=== PATIENT | female | born 1955 | race Caucasian/White ===

== ENCOUNTER 2024-07-06 09:16 | Outpatient (REF) | payer MEDICARE, OTHER, SELFPAY ==
--- OUTSIDE RECORDS SUMMARY | 2024-07-06 10:20 | XMS_ITS | Clinical Summary ---
Author Organization [facility] Address [address] [place] [phone] Phone Care Team Providers Care Oracle Database Administrator Name Role Phone Shana Sidhu MD Primary Care Provider [phone] Allergies Active Allergy Reactions Criticality Noted Date Comments Egg 12/27/2020 GI issues Other 02/11/2022 Seasonal Medications cholecalciferol (VITAMIN D-3) 50 mcg (2,000 unit) tablet Take 1 Tablet by mouth daily. 2 Active multivitamin (MULTI-DAY ORAL) Take by mouth. Active ciclopirox (PENLAC) 8 % solution APPLY ONCE DAILY TO AFFECTED TOENAILS. REMOVE WITH ACETONE OR RUBBING ALCOHOL EVERY 7 DAYS. 4 Active LORazepam (ATIVAN) 0.5 mg tablet Take 1 tablet (0.5 mg total) by mouth every 6 (six) hours if needed. Max Daily Amount: 2 mg Active atorvastatin (LIPITOR) 10 mg tablet Take 1 tablet (10 mg total) by mouth 1 (one) time each day. 90 tablet 1 5 Active amLODIPine (NORVASC) 5 mg tablet Take 1 tablet (5 mg total) by mouth 1 (one) time each day. 90 tablet 1 5 Active alendronate (FOSAMAX) 70 mg tablet TAKE 1 TABLET BY MOUTH ONE TIME PER WEEK 12 tablet 5 Active benzonatate (TESSALON) 100 mg capsule Take 1 capsule (100 mg total) by mouth 3 (three) times a day if needed for cough for up to 7 days. Do not crush or chew. 21 each 5 06/13/19 25 Active Problems Problem Noted Date Diagnosed Date History of total abdominal hysterectomy 03/16/20 24 H/O bilateral salpingo-oophorectomy 03/16/2024 History of splenectomy 03/16/2024 Hyperlipidemia 03/16/2024 Assessment & Plan (03/16/2024 9:34 AM EST): Follow low-cholesterol diet. Continue atorvastatin. Malignant neoplasm of both o varies (CMS/HCC V24, CMS/HCC V28) 12/03/2023 Assessment & Plan (03/16/2024 9:34 AM EST): She is being monitored very closely by oncology and gynecology is not getting good treatment through them. Primary hypertension 09/15/2023 Assessment & Plan (03/16/2024 9:34 AM EST): Blood pressure is acceptable. Continue amlodipine. Diverticulosis 01/29/2021 Overview (02/10/2024): Sigmoid colon Allergic rhinitis 12/19/2020 DDD (degenerative disc disease), cervical 2020 Overview (02/10/2024): Multilevel. Lordotic loss w/ slight degrees of anterolithesis at C4-5 and C7-T1, cervical spine xray 06/06/2019. DJD (degenerative joint disease) 12/19/2020 Overview (02/10/2024): Multilevel, x-ray cervical spine 06/06/2019. R neck pain daily basis. Lipoma of lower back 12/19/2020 Overview (02/10/2024): Per provider problem list. Mitral valve prolapse 12/19/2020 Overview (02/10/2024): Per provider problem list. Osteopenia 12/19/2020 Assessment & Plan (03/16/2024 9:34 AM EST): Continue alendronate. No side effects of the medication. Pectus excavatum 12/19/2020 Overview (02/10/2024): Mild, 06/06/2019 chest x-ray. Thoracic kyphosis 12/19/2020 Overview (02/10/2024): Thoracic kyphoscoliosis - Mild, 06/06/2019 chest x-ray. Varicose veins of legs 12/19/2020 Venous insufficiency of both lower extremities 0 12/19/2020 Overview (02/10/2024): S/P EVLT and phlebectomy. Encounters Date Type Department Care Team Description 06/09/2024 Telephone Internal Medicine - [address] [phone] Shana Sidhu MD Forms/questionnaires ([facility] PROGRAM MEDICAL CLEARANCE) 06/05/2024 9:00 AM EDT Office Visit Walk-In Clinic - [address] [phone] Chester Lazcano, MOTORCYCLE ENGINE ASSEMBLER Symptoms of upper respiratory infection (URI) (Primary Dx); COVID from Last 3 Months Immunizations Name Administration Dates Next Due HiB PRP-T conjugate (Acthib, Hiberix) 6wks and o lder 11/14/2023 Influenza Quadravalent, MDCK , 0.5ml, preservative free (Flucelvax) 6mo and older 12/08/2022 Influenza trivalent, 0.5mL (Fluad) 65yo and olde r 01/07/2022 Influenza trivalent, 0.5mL ( Fluzone High-dose) 65yo and older 12/10/2023,01/07/2022 Meningococcal B, Recombinant (Bexsero) 16yo to less than 24yo 01/12/2024,11/13/2023 Meningococcal Conjugate (Men veo) MenACWY 11yo to less than 19 yo 01/12/2024,11/14/2023 Moderna SARS-CoV-2 COVID-19, mRNA, LNP-S, preservative free 01/24/2021 Pneumococcal conjugate 13 va lent (Prevnar 13, PCV13) 2mo and older 12/27/2020 Pneumococcal conjugate 20 va lent (Prevnar 20, PCV 20) 2mo and older 11/13/2023 Pneumococcal polysaccharide 23 valent (Pneumovax 23) 2yo and older 07/27/2022 Pneumococcal, Unspecified 03/04/2015 Tdap Tetanus diptheria acell ular pertussis (Boostrix; Adacel) 7yo and older 12/08/2022,04/20/2019 Zoster recombinant (Shingrix) 19yo and older ,02/21/2019 Surgical History Surgery Date Site/Laterality Comments MASTECTOMY 01/14/2010 Right PROCEDURE: HISTORICAL MASTECTOMY; COMMENT: w/ immed reconstruction of R breast by Dr. Sinha, L breast augmentation w/ silicone gel implants bilaterally. OTHER SURGICAL HISTORY 06/23/2018 Left PROCEDURE: [place] ENDOVEN ABLTJ INCMPTNT VEIN XTR LASER 2ND+ VEINS; COMMENT: Dr. Lena Hope CATARACT EXTRACTION PROCEDURE: HISTORICAL CATARACT REMOVAL SECTION PROCEDURE: HISTORICAL DELIVERY; COMMENT: x 3 COLONOSCOPY 07/31/2020 PROCEDURE: HISTORICAL COLONOSCOPY; COMMENT: Diverticulosis in sigmoid colon, internal hemorrhoids without prolapse, otherwise normal, no specimens collected. 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 Pectus excavatum 12/19/2020 DX:Pectus excav atum; COMMENT: Mild, 06/06/2019 chest x-ray. Thoracic kyphosis 12/19/2020 DX:Thoracic ky phosis; COMMENT: Mild, 06/06/2019 chest x-ray. DDD (degenerative disc disea se), cervical 12/19/2020 DX:DDD (degenerative disc di sease), cervical; COMMENT: Multilevel. Lordotic loss w/ slight degrees of anterolithesis at C4-5 and C7-T1, cervical spine xray 06/06/2019. R neck pain daily basis. DJD (degenerative joint disease) 12/19/2020 DX:DJD (degenerative joint disease); COMMENT: Multilevel, x-ray cervical spine 06/06/2019 Allergic rhinitis 12/19/2020 DX:Allergic rh initis Venous insufficiency of both lower extremities 12/19/2020 DX:Venous insufficiency of b oth lower extremities; COMMENT: S/P EVLT and phlebectomy. Varicose veins of legs 12/19/2020 DX:Varico se veins of legs History of cataract 12/19/2020 DX:History o f cataract; COMMENT: s/p surgery, bilaterally. Mitral valve prolapse 12/19/2020 DX:Mitral valve prolapse; COMMENT: Per provider problem list. Lipoma of lower back 12/19/2020 DX:Lipoma o f lower back; COMMENT: Per provider problem list. 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) S/P Todd-Bso 12/03/2023 DX:S/P TODD-BSO H/O bilateral salpingo-oophorectomy 03/16/2024 History of splenectomy 03/16/2024 Family History Medical History Relation Name Comments Breast cancer Aunt 1 maternal Breast cancer Aunt 2 maternal Hypertension Father DEmentia, carot id stenosis, Colon Polyps Osteoporosis Mother early onset dem entia, Hypertension, Dementia Kidney cancer Other 1 paternal cousin Bladder Cancer Other 2 paternal cousin Relation Name Status Comments Aunt 1 maternal Aunt 2 maternal Father Mother Other 1 paternal cousin Other 2 paternal cousin Social History Tobacco Use Types Packs/Day Years Used Date Smoking Tobacco: Never Smokeless Tobacco: Never Tobacco Cessation:Counseling Given: Not Answered Alcohol Use Standard Drinks/Week Comments Yes 0 (1 standard drink = 0.6 oz pur e alcohol) Comments No Sex and Gender Information Value Date Recorded Sex Assigned at Not on file Legal Sex Female 9:13 PM EST Gender Identity Not on file Sexual Orientation Not on file Obstetrics History Last Filed Vital Signs Vital Sign Reading Time Taken Comments Blood Pressure 108/72 06/05/2024 9:00 AM EDT Pulse 100 06/05/2024 9:00 AM EDT Temperature 36.7 ??C (98 ??F) 06/05/2024 9:00 AM EDT Respiratory Rate - - Oxygen Saturation 97% 06/05/2024 9:00 AM EDT Inhaled Oxygen Concentration - - Weight 52.3 kg (115 lb 6.4 oz) 03/16/2024 9:07 A M EST Height 158.8 cm (5' 2.5 ) 03/16/2024 9:07 AM EST Body Mass Index 20.77 03/16/2024 9:07 AM EST Plan of Treatment Upcoming Encounters Date Type Department Care Team (Late st Contact Info) Description 07/28/2024 9:00 AM EDT Office Visit Internal Medicine - [facility] [address] [place], [place] [phone] Kassi Wilson, LINDA [address] [place] [address] Health Maintenance Due Date Last Done Comments Breast Cancer Screening 1955 Social Influencers of Health Screening 02/28/2022 Cervical Cancer Screening: Pap Smear 03/13/2023 03/13/2022 COVID-19 Vaccine ( season) 2023 08/04/2021, 01/24/2021, 06/28/2020, Additional history exists Meningococcal B Vaccine (3 of 5 - Increased Risk Bexsero 3-dose series) 05/15/2024 01/12/2024, 11/13/2023 Depression Screening 08/17/2024 08/18/2023 Falls Risk Assessment 08/17/2024 08/18/2023 Medicare Annual Wellness Visit 08/17/2024 08/18/2023 Osteoporosis Screening (Bone Density Screening) 09/20/2024 09/21/2023, 09/21/2023, 08/28/2021 Hypertension/CHF/CAD Annual BMP Blood Test 05/03/2025 05/03/2024, 04/05/2024, 03/08/2024, Additional history exists Colorectal Cancer Screening: Colonoscopy 07/31/2025 07/31/2020 Cholesterol Screening (Lipid Panel) 09/09/2028 09/10/2023, 09/10/2023 Meningococcal ACWY Vaccine (3 - Risk 2-dose series) 01/11/2029 01/12/2024, 11/14/2023 RSV Immunization Adult Patients (1 - 1-dose 75+ series) 2029 DTaP,Tdap,and Td Vaccines (3 - Td or Tdap) 12/08/2032 12/08/2022, 04/20/2019 Zoster Vaccines Completed 05/19/2019, 02/21/2019 Hepatitis C Screening Completed 04/30/2021 Pneumococcal Vaccine: 50+ Years Completed 11/13/2023, 07/27/2022, 12/27/2020, Additional history exists HIB Vaccines Completed 11/14/2023 Influenza Vaccine Completed 12/10/2023, , 01/07/2022, Additional history exists HPV Vaccines Aged Out No longer eligi ble based on patient's age to complete this topic Hepatitis A Vaccines Aged Out No long er eligible based on patient's age to complete this topic Hepatitis B Vaccines Aged Out No long er eligible based on patient's age to complete this topic IPV Vaccines Aged Out No longer eligi ble based on patient's age to complete this topic MMR Vaccines Aged Out No longer eligi ble based on patient's age to complete this topic RSV Immunization Patients Under 20 months Aged Out No longer eligible based on patient's age to complete this topic Varicella Vaccines Aged Out No longer eligible based on patient's age to complete this topic Procedures Procedure Name Priority Date/Time Associated Diagnosis Comments POC RAPID [id number], MOLECULAR Routine 06/05/2024 9:11 AM EDT Symptoms of upper respiratory infection (URI) ANNUAL BMP BLOOD TEST Routine 12/21/2023 [facility] DEXA AXIAL SKELETON Routine 09/21/2023 8:58 AM EDT Encounter for screening for osteoporosis LIPID PANEL Routine 09/10/2023 DEPRESSION SCREENING Routine 08/18/2023 FALLS RISK ASSESSMENT Routine 08/18/2023 PAP SMEAR Routine 03/13/2022 HEPATITIS C SCREENING Routine 04/30/2021 COLONOSCOPY Routine 07/31/2020 from Last 3 Months or Most Recently Relevant to Health Maintenance Results * (ABNORMAL) Poc Rapid [id number], MOLECULAR (06/05/2024 9:11 AM EDT) COVID-19/SARS- COV-2 Rapid POC Positive(A ) Negative Swab Nasopharyngeal structure / Unknown 06/05/2024 9:11 AM EDT Chester Lazcano NP POINT OF CARE TEST ENTER/EDIT ORDERABLES Final Result * [facility] DEXA AXIAL SKELETON (09/21/2023 8:58 AM EDT) Anatomical Region Laterality Modality Mammography 09/21/2023 8:12 AM EDT Narrative 09/21/2023 8:58 AM EDT [facility] Diagnostic Imaging Department [address] [place] [address] Patient: ??MONSERRAT BROOKS ?/Age/Sex: 1955 - 67 - F Unit#: ??[id number] ? Location/Status: ??SPDIMAM/REG CLI ? Mnemonic/Ordering Site: ??MAMDEXAAX/SPMAM Ordering Physician: ??SHANA SIDHU MD [facility] Dexa Axial Skeleton - 09/21/2349 Report Status:Signed History: Low estrogen state due to menopause. Parent hip fracture. Takes alendronate. Comparison: No comparison imaging at this institution. Findings: Bone densitometry is performed utilizing dual energy x-ray absorptiometry (DXA) in the [employer] unit. The lumbar spine and proximal femora are evaluated in the AP projection. The FRAX questionaire was completed. The results indicate low bone mass (osteopenia), with a left femoral neck T- score of -1.9. The Z score is -0.1, indicating bone mineral density within the range of normal for age. ??The detailed DEXA report will be mailed to the referring physician's office. DualFemur FRAX: 10-year Probability of Fracture: Major Osteoporotic 16.5 percent ??Hip 2.7 percent. IMPRESSION: Osteopenia. [id number] Dictating Physician: ??FELICITA LEON MD Electronically Signed by: ??FELICITA LEON MD Dic Date/Time: ??09/21/23 0857 Sign date/Time: ??09/21/23 0858 Procedure Note Felicita Leon MD - 01/12/2024 [facility] Diagnostic Imaging Department [address] [place], [place] [address] Patient: MONSERRAT BROOKS /Age/Sex: 1955 - 67 - F Unit#: [id number] [facility] Ordering Physician: SHANA SIDHU MD [facility] Dexa Axial Skeleton - 09/21/23 - 0849 Report Status:Signed History: Low estrogen state due to menopause. Parent hip fracture. Takes alendronate. Comparison: No comparison imaging at this institution. Findings: Bone densitometry is performed utilizing dual energy x-ray absorptiometry(DXA) in the [employer] unit. The lumbar spine and proximal femora areevaluated in the AP projection. The FRAX questionaire was completed. The results indicate low bone mass (osteopenia), with a left femoral neckT- score of -1.9. The Z score is -0.1, indicating bone mineral density withinthe range of normal for age. The detailed DEXA report will be mailed to the referring physician's office. DualFemur FRAX: 10-year Probability of Fracture: Major Osteoporotic 16.5 percent Hip 2.7 percent. IMPRESSION: Osteopenia. [id number] Dictating Physician: FELICITA LEON MD Electronically Signed by: FELICITA LEON MD Dic Date/Time: 09/21/2357 Sign date/Time: 09/21/23 0858 Result [facility] Shana Sidhu MD IMG BI PROCEDURES Final R esult * Lipid panel (09/10/2023) [facility] LDL/HDL Ratio 2 0 - 4 Triglycerides 82 0 - 150 mg/dL Cholesterol 181 0 - 200 mg/dL HDL 78 >=40 mg/dL LDL Cholesterol 87 0 - 100 mg/dL Blood Venous blood specimen / Unknown Historical Provider LAB BLOOD ORDERABLES Ree l Result * Falls Risk Assessment (08/18/2023) [facility] Falls Risk Assessment Abstracted Result [facility] Historical Provider HEALTH MAINTENANCE Final Result * Depression Screening (08/18/2023) [facility] Depression Screening Abstracted Result [facility] Historical Provider HEALTH MAINTENANCE Final Result * Pap Smear (03/13/2022) Pap smear Negative, Abstracted Historical Provider HEALTH MAINTENANCE Final Result * Hepatitis C Screening (04/30/2021) Hepatitis C Screening Abstracted Historical Provider HEALTH MAINTENANCE Final Result * Colonoscopy (07/31/2020) Colonoscopy No interpretation , Abstracted Comment:Diverticulosis in si gmoid colon, internal hemorrhoids, otherwise normal- no speciments taken. Repeat 5 yrs- family hx. Anatomical Region Laterality Modality Other Historical Provider HEALTH MAINTENANCE Final Result from Last 3 Months or Most Recently Relevant to Health Maintenance Insurance MEDICARE [facility] Care Teams Oracle Database Administrator Relationship Specialty Start Date End Date Shana Sidhu MD [address] [place] [id number] PCP - General Internal Medicine 11/22/20
[2024-07-06 11:33] LABS: Thyroid Stimulating Hormone 0.53 uIU/mL (0.32-4.0)
[2024-07-06 11:36] LABS: Vitamin B12 340 pg/mL (200-900)
== END 2024-07-06 09:17 | disposition home or self-care (01) ==
LOC: HO.LAB 09:16
PROVIDERS: PCP Internal Medicine; Visit Provider Psychiatry & Neurology Neurology
DX: G31.84 Mild cognitive impairment of uncertain or unknown etiology (principal)
CPT/HCPCS: 82233; 82234; 82607; 84393; 84443

== ENCOUNTER 2024-07-25 10:32 | Outpatient (REF) | payer MEDICARE, OTHER, SELFPAY ==
--- NOTE | ~2024-07-25 | XR_ITS ---
EXAMINATION: XR PARANASAL SINUSES 3 VIEWS HISTORY: sinusitis COMPARISON: There are no prior studies for comparison. FINDINGS: Five views of the paranasal sinuses are submitted. The bilateral frontal, maxillary, ethmoid, and sphenoid sinuses are well-aerated and clear. XR/XR sinus min 3V IMPRESSION: Unremarkable examination of the paranasal sinuses. Electronically signed by: Garcia Castrejon MD 07/26/2024 03:13 PM EDT RP
--- OUTSIDE RECORDS SUMMARY | 2024-07-25 12:11 | XMS_ITS | Clinical Summary ---
Author Organization [facility] Address [address] [place] [phone] Phone Care Team Providers Care Shaper Machine Hand Name Role Phone Shana Sidhu MD Primary Care Provider [phone] Allergies Active Allergy Reactions Criticality Noted Date Comments Egg 12/27/2020 GI issues Other 02/11/2022 Seasonal Medications cholecalciferol (VITAMIN D-3) 50 mcg (2,000 unit) tablet Take 1 Tablet by mouth daily. 09/05/2021 Active multivitamin (MULTI-DAY ORAL) Take by mouth. Active ciclopirox (PENLAC) 8 % solution APPLY ONCE DAILY TO AFFECTED TOENAILS. REMOVE WITH ACETONE OR RUBBING ALCOHOL EVERY 7 DAYS. 01/10/2024 Active LORazepam (ATIVAN) 0.5 mg tablet Take 1 tablet (0.5 mg total) by mouth every 6 (six) hours if needed. Max Daily Amount: 2 mg Active atorvastatin (LIPITOR) 10 mg tablet Take 1 tablet (10 mg total) by mouth 1 (one) time each day. 90 tablet 1 05/09/2024 Active amLODIPine (NORVASC) 5 mg tablet Take 1 tablet (5 mg total) by mouth 1 (one) time each day. 90 tablet 1 05/09/2024 Active alendronate (FOSAMAX) 70 mg tablet TAKE 1 TABLET BY MOUTH ONE TIME PER WEEK 12 tablet 06/01/2024 Active Active Problems Problem Noted Date Diagnosed Date [...] Team Description 06/09/2024 Telephone Internal Medicine - [address] [phone] Shana Sidhu MD Forms/questionnaires ([facility] PROGRAM MEDICAL CLEARANCE) 06/05/2024 9:00 AM EDT Office Visit Walk-In Clinic - [address] [phone] Chester Lazcano, INTERNAL MEDICINE DOCTOR Symptoms of upper respiratory infection (URI) (Primary [...] bilaterally. OTHER SURGICAL HISTORY 06/23/2018 Left PROCEDURE: [place] ENDOVEN ABLTJ INCMPTNT VEIN XTR LASER 2ND+ [...] 12/03/2023 DX:Malignant neoplasm of ghazal th ovaries ([facility]) S/P Todd-Bso 12/03/2023 DX:S/P TODD-BSO H/O bilateral [...] AM EDT Office Visit Internal Medicine - [address] [phone] Kassi Wilson, LINDA [address] [place] [phone] 08/09/2024 9:00 AM EDT Office Visit Internal Medicine - [address] [phone] Kassi Wilson, LINDA [address] [place] [phone] Health Maintenance Due Date Last Done Comments [...] Priority Date/Time Associated Diagnosis Comments POC RAPID [id number], MOLECULAR Routine 06/05/2024 9:11 AM EDT Symptoms of upper respiratory infection (URI) ANNUAL BMP BLOOD TEST Routine 12/21/2023 [facility] DEXA AXIAL SKELETON Routine 09/21/2023 8:58 AM EDT Encounter for screening for osteoporosis LIPID PANEL Routine 09/10/2023 DEPRESSION SCREENING Routine 08/18/2023 FALLS RISK ASSESSMENT Routine 08/18/2023 PAP SMEAR Routine 03/13/2022 HEPATITIS C SCREENING Routine 04/30/2021 COLONOSCOPY Routine 07/31/2020 from Last 3 Months or Most Recently Relevant to Health Maintenance Results * (ABNORMAL) Poc Rapid [id number], MOLECULAR (06/05/2024 9:11 AM EDT) [facility] COVID-19/SARS- COV-2 Rapid POC Positive(A ) Negative Swab Nasopharyngeal structure / Unknown 06/05/2024 9:11 AM EDT Chester Lazcano NP POINT OF CARE TEST ENTER/EDIT ORDERABLES Final Result * [facility] DEXA AXIAL SKELETON (09/21/2023 8:58 AM EDT) Anatomical Region Laterality Modality Mammography 09/21/2023 8:12 AM EDT Narrative 09/21/2023 8:58 AM EDT [facility] Diagnostic Imaging Department [address] [place], [place] [id number] Patient: ??MONSERRAT BROOKS ?/Age/Sex: 1955 - 67 - F Unit#: ??[id number] ? Location/Status: ??SPDIMAM/REG CLI ? Mnemonic/Ordering Site: ??MAMDEXAAX/SPMAM Ordering Physician: ??SHANA SIDHU MD [facility] Dexa Axial Skeleton - 09/21/23848 Report Status:Signed History: Low estrogen state due to menopause. Parent hip fracture. Takes alendronate. Comparison: No comparison imaging at this institution. Findings: Bone densitometry is performed utilizing dual energy x-ray absorptiometry (DXA) in the [employer] unit. The lumbar spine and proximal femora [...] 16.5 percent ??Hip 2.7 percent. IMPRESSION: Osteopenia. [id number] Dictating Physician: ??FELICITA LEON MD Electronically Signed by: ??FELICITA LEON MD Dic Date/Time: ??09/21/23 0857 Sign date/Time: ??09/21/23 0858 Procedure Note Felicita Leon MD - 01/12/2024 [facility] Diagnostic Imaging Department [address] [place] [address] Patient: MONSERRAT BROOKS /Age/Sex: 1955 - 67 - F Unit#: [id number] Location/Status: SPDIMAM/REG CLI Mnemonic/Ordering Site: MAMDEXAAX/SPMAM Ordering Physician: SHANA SIDHU MD [facility] Dexa Axial Skeleton - 09/21/23 - 0849 Report Status:Signed History: Low estrogen state due to menopause. Parent hip fracture. Takes alendronate. Comparison: No comparison imaging at this institution. Findings: Bone densitometry is performed utilizing dual energy x-ray absorptiometry(DXA) in the [employer] unit. The lumbar spine and proximal femora [...] 16.5 percent Hip 2.7 percent. IMPRESSION: Osteopenia. [id number] Dictating Physician: FELICITA LEON MD Electronically Signed by: FELICITA LEON MD Dic Date/Time: 09/21/23856 Sign date/Time: 09/21/2358 Shana Sidhu MD IMG BI PROCEDURES Final R esult * Lipid panel (09/10/2023) [facility] LDL/HDL Ratio 2 0 - 4 Triglycerides 82 0 - 150 mg/dL Cholesterol 181 0 - 200 mg/dL HDL 78 >=40 mg/dL LDL Cholesterol 87 0 - 100 mg/dL Blood Venous blood specimen / Unknown Historical Provider LAB BLOOD ORDERABLES Ree l Result * Falls Risk Assessment (08/18/2023) [facility] Falls Risk Assessment Abstracted Historical Provider HEALTH MAINTENANCE Final Result * Depression Screening (08/18/2023) [facility] Depression Screening Abstracted Historical Provider HEALTH MAINTENANCE Final Result * Pap Smear (03/13/2022) [facility] Pap smear Negative, Abstracted [facility] Provider HEALTH MAINTENANCE Final Result * Hepatitis C Screening (04/30/2021) [facility] Hepatitis C Screening Abstracted [facility] Provider HEALTH MAINTENANCE Final Result * Colonoscopy (07/31/2020) [facility] Colonoscopy No interpretation , Abstracted Comment:Diverticulosis in si gmoid colon, internal hemorrhoids, otherwise normal- no speciments taken. Repeat 5 yrs- family hx. Anatomical Region Laterality Modality Other [facility] Provider HEALTH MAINTENANCE Final Result from Last 3 Months or Most Recently Relevant to Health Maintenance Insurance MEDICARE [facility] [address] [place] [address] Care Teams Shaper Machine Hand Relationship Specialty Start Date End Date Shana Sidhu MD [address] [place] [phone] PCP - General Internal Medicine 11/22/20
== END 2024-07-25 10:33 | disposition home or self-care (01) ==
LOC: HO.LAB 10:32
PROVIDERS: PCP Internal Medicine; Visit Provider Otolaryngology
DX: J32.9 Chronic sinusitis, unspecified (principal)
CPT/HCPCS: 70220

== ENCOUNTER → 2024-07-25 11:00 | Outpatient (BNV) | payer MEDICARE, OTHER, SELFPAY | PROVIDERS: PCP Internal Medicine; Visit Provider Radiology Diagnostic Radiology | DX: J01.90 Acute sinusitis, unspecified (principal) | CPT/HCPCS: 70220 ==

== ENCOUNTER 2024-12-19 15:47 | Outpatient (AMB) | payer MEDICARE, OTHER, SELFPAY ==
--- OUTSIDE RECORDS SUMMARY | 2024-12-15 11:00 | XMS_ITS | Encounter Summary ---
Author Organization [facility] Address [address] [place] [address] Care Team Providers Care Salon Assistant Name Role Phone Stephania Corona MD Primary Care Provider [phone] Reason for Visit * Reason Comments Cerumen Impaction 1 week , Both side Encounter Details Date Type Department Care Team (Late st Contact Info) Description 12/15/2024 11:00 AM EDT Office Visit Walk-In Clinic - [facility] [address] [place], [place] [phone] Arie Ellis PA [address] [place], [place] Impacted cerumen of both ears (Primary Dx) Social History Tobacco Use Types Packs/Day Years Used Date Smoking Tobacco: Never Smokeless Tobacco: Never Alcohol Use Standard Drinks/Week Comments Yes 0 (1 standard drink = 0.6 oz pur e alcohol) occasional Housing Instability Answer Date Recorde d Are you worried that in the next 2 months you may not have stable housing? No 07/25/2024 Food Access & Nutrition Answer Date Rec orded Do you have access to a vari ety of food including fruits and vegetables? Yes 10/10/2024 Access to Healthcare Answer Date Record ed Within the last 3 months, ho w many times did you visit the emergency department for your medical care? 0 07/25/2024 Health Literacy Answer Date Recorded How often do you need to hav e someone help you when you read instructions, pamphlets, or other written material from your doctor or pharmacy? Rarely 07/25/2024 Caregiver: How often do you need to have someone help you when you read instructions, pamphlets, or other written material from your doctor or pharmacy? Not on file 07/25/2024 Financial Risk Answer Date Recorded How hard is it for you to pa y for the very basics like food, housing, medical care, and air conditioning / heating? Not very hard 10/10/2024 Transportation Answer Date Recorded Has the lack of transportati on kept you from meetings, work, or from getting things needed for daily living? No Has the lack of transportati on kept you from medical appointments or from getting medications? No 10/10/2024 Social Isolation Answer Date Recorded How often do you feel lonely or isolated from th ose around you? Never 10/10/2024 Food Risk Answer Date Recorded Within the past 12 months we worried whether our food would run out before we got money to buy more. Never true 10/10/2024 Within the past 12 months th e food we bought just didn't last and we didn't have money to get more. Never true 10/10/2024 Dependent Care Answer Date Recorded Do you need help finding or paying for care for your loved ones. For example, early childhood education coordinator or elderly care for an older adult? No 10/10/2024 Education Answer Date Recorded Do you think completing more education or training, like finishing a GED, going to college, or learning a trade, would be helpful for you? No 10/10/2024 Employment and Income Answer Date Recor ded During the last four weeks, have you been actively looking for work? No 07/25/2024 Living Situation Answer Date Recorded What is your living situation? 0 07/25/2024 Comments No Sex and Gender Information Value Date Recorded Sex Assigned at Not on file Legal Sex Female 9:13 PM EST Gender Identity Not on file Sexual Orientation Not on file documented as of this encounter Last Filed Vital Signs Vital Sign Reading Time Taken Comments Blood Pressure 138/82 12/15/2024 10:52 AM EDT Pulse 76 12/15/2024 10:52 AM EDT Temperature 36.2 C (97.1 F) 12/15/2024 10:52 AM EDT Respiratory Rate - - Oxygen Saturation 98% 12/15/2024 10:52 AM EDT Inhaled Oxygen Concentration - - Weight - - Height - - Body Mass Index - - documented in this encounter Progress Notes * JITENDRA Villalobos - 12/15/2024 11:00 AM EDT CHIEF COMPLAINT: Chief Complaint Patient presents with Cerumen Impaction 1 week , Both side HPI: Gabi Brooks is a 69 y.o. old female presenting with about a week of blockage in both ears. States that it feels reminiscent of earwax problems she has had in the past. Denies any head cold symptoms,fever, or ear pain related to onset. ROS: Remainder of the 12 point review of symptoms unremarkable except for those idenitified in the HPI. PAST MEDICAL HISTORY: Patient Active Problem List Diagnosis Date Noted Hyperlipidemia 03/16/2024 Malignant neoplasm of both ovaries (CMS/[facility] V24, CMS/[facility] V28) 12/03/2023 Primary hypertension 09/15/2023 Diverticulosis 01/29/2021 Allergic rhinitis 12/19/2020 DDD (degenerative disc disease), cervical 12/19/2020 DJD (degenerative joint disease) 12/19/2020 Lipoma of lower back 12/19/2020 Mitral valve prolapse 12/19/2020 Osteopenia 12/19/2020 Pectus excavatum 12/19/2020 Thoracic kyphosis 12/19/2020 Varicose veins of legs 12/19/2020 Venous insufficiency of both lower extremities 12/19/2020 Past Surgical History: Procedure Laterality Date CATARACT EXTRACTION PROCEDURE: HISTORICAL CATARACT REMOVAL SECTION PROCEDURE: HISTORICAL DELIVERY; COMMENT: x 3 COLONOSCOPY 07/31/2020 PROCEDURE: HISTORICAL COLONOSCOPY; COMMENT: Diverticulosis in sigmoid colon, internal hemorrhoids without prolapse, otherwise normal, no specimens collected. Repeat 5 yrs MASTECTOMY Right 01/14/2010 PROCEDURE: HISTORICAL MASTECTOMY; COMMENT: w/ immed reconstruction of R breast by Dr. Sinha, L breast augmentation w/ silicone gel implants bilaterally. OTHER SURGICAL HISTORY Left 06/23/2018 PROCEDURE: NM ENDOVEN ABLTJ INCMPTNT VEIN XTR LASER 2ND+ VEINS; COMMENT: Dr. Lena Hope SPLENECTOMY, TOTAL N/A SOCIAL HISTORY: Social History Tobacco Use Smoking status: Never Smokeless tobacco: Never Substance Use Topics Alcohol use: Yes Comment: occasional FAMILY HISTORY: Family History Problem Relation Name Age of Onset Osteoporosis Mother early onset dementia, Hypertension, Dementia Hypertension Father DEmentia, carotid stenosis, Colon Polyps Other (other) Sister colon polyps No Known Problems Daughter No Known Problems Son Breast cancer Aunt maternal 60 Breast cancer Aunt maternal 60 Kidney cancer Other paternal cousin Bladder Cancer Other paternal cousin Family Status Relation Name Status Mother Father Sister Alive Daughter Alive Son Alive Aunt maternal (Not Specified) Aunt maternal (Not Specified) Other paternal cousin (Not Specified) Other paternal cousin (Not Specified) No partnership data on file MEDICATIONS DISCONTINUED/REORDERED: There are no discontinued medications. ACTIVE MEDICATIONS: No outpatient medications have been marked as taking for the 12/15/24 encounter (Office Visit) with JITENDRA Villalobos. ALLERGIES: Allergies Allergen Reactions Egg GI issues Other Seasonal PHYSICAL EXAM: Vitals: 12/15/24 1052 BP: 138/82 BP Location: Left arm Patient Position: Sitting Pulse: 76 Temp: 36.2 ??C (97.1 ??F) SpO2: 98% CONSTITUTIONAL: alert, calm, cooperative, in no acute distress HEAD: normocephalic, atraumatic EYES: extraocular movement intact (EOMI), sclera non-icteric EARS: Bilateral external auditory canals occluded with dark brown cerumen, unable to visualize tympanic membrane. No tenderness upon retraction of pinna or insertion of otoscope. No gross edema or exudative process of visible aspects of auditory canal. NECK/THYROID: neck range of motion grossly intact SKIN: warm and dry LUNGS: respirations regular rate and depth without acute distress MSK: no clubbing, cyanosis, or edema of the extremities NEUROLOGIC: alert and oriented, no tremor, cranial nerves II-XII grossly intact PSYCH: mood/affect full range, speech clear, good eye contact, cooperative with exam LABS/IMAGING: None No results found for: EGFR IMPRESSION: 1. Impacted cerumen of both ears PLAN: The patient's PMH, problem list and medications were reviewed in reference to the above diagnosis/diagnoses. Based on ROS, HPI, and PE, suggestive of cerumen impaction of both ears. Educated patient to common causes. Patient verbally consents to ear lavage in office today after discussing risks and benefits. A mixture of warm water and hydrogen peroxide is used to irrigate the bilateral ear with a combination of syringe and the elephant ear system with results. Following the procedure repeat otoscopy was performed auditory canal is now clear, hearing is restored, tympanic membrane intact without signs of infec tion or damage. Tolerated well. No complications. Advised to follow up with PCP in 7 days if symptoms do not improve. Advised to follow up with orPCP immediately for new or worsening symptoms. Educated on red flags symptoms. Advised to go to the ER or call 911 for these symptoms. Patient understands the plan. Patient verbalizes agreement with the plan. Orders Placed This Encounter Procedures Ear Cerumen Removal Scheduling Instructions: Bilateral lavage JITENDRA Villalobos on 12/15/2024 at 11:31 AM EDT Today's documentation was made using voice recognition software. This note may contain grammatical errors secondary to this software. Cosigned by Chester Brown MD at 12/19/2024 10:09 AM EDT documented in this encounter Plan of Treatment Upcoming Encounters Date Type Department Care Team (Late st Contact Info) Description 03/13/2025 10:00 AM EST Office Visit Internal Medicine - [address] [phone] Stephania Corona MD [address] [place] [address] Scheduled Orders Name Type Priority Associated Diagnoses Orde r Schedule Ear Cerumen Removal Procedures Routine Impacted cerumen of both ears Ordered: 12/15/2024 documented as of this encounter Visit Diagnoses Diagnosis Impacted cerumen of both ears- Primary Impacted cerumen documented in this encounter Additional Health Concerns Assessment Noted Time PHQ-9 Depression Total Score: 0 10/11/19 8:54 AM EDT documented as of this encounter Care Teams Salon Assistant Relationship Specialty Start Date End Date Stephania Corona MD [address] [place] [address] PCP - General Internal Medicine 10/27/24 documented as of this encounter
--- NOTE | 2024-12-19 16:06 | A.OFFVIS_ITS ---
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 For a while, she has noted that she was forgetting names, like names of actors she knew. For a year, she has developed another problem. If she was parking her car in a parking lot where other cars were already parked, she did not have much problem, but if there was no car in the lot, she had difficulty putting the car in the right spot and she was going back and forth before it was properly parked. She was most concerned about her difficulty with retrieving names. Her sleep was not good. She never had been a good sleeper. Her mood was good and positive. Bladder control was ok. Hearing was affected. No headaches. No change in pers onality. Physical Exam Neuro Other: Mental Status: Alert and oriented to person, place, and time. Normal attention. Normal spontaneous speech, fluency, and comprehension. Cranial Nerves: CN II: Visual steinberg full to confrontation, visual acuity intact. CN III, IV, : Pupils equal, round, reactive to light and accommodation. Extraocular movements are normal. CN V: Facial sensation is normal. CN VII: Facial movements symmetrical. CN VIII: Hearing intact to bedside conversation is normal. CN IX, X: Palate elevates symmetrically. CN XI: Shoulder shrug and head turn symmetrical. CN XII: Tongue midline without atrophy or fasciculations. Extrapyramidal: Full facial expressions and blinking. No rigidity. Movements are appropriate with no tremor or abnormality. Speech: Normal; no dysarthria or tremor. Assessment & Plan Assessment & Plan (1) MCI (mild cognitive impairment): Comment: MRI brain WO at [facility] in August 2024: Mild diff atrophy Labs at [facility] in 2024: B12 340, TSH 0.53 Code(s): G31.84 - Mild cognitive impairment of uncertain or unknown etiology Category: Medical Plan 69 yo woman with MCI with family h/o dementia Rec: Abeta 42/40/tau testing on serum to check for cerebral amyloid load. Orders: Orders ABeta 42/40 p-tau 217 Eval Today G31.84 - Mild cognitive impairment of uncertain or unknown etiology Coding Level of Care Code Est Pt Level 4 (55383) Diagnoses MCI (mild cognitive impairment) G31.84
--- OUTSIDE RECORDS SUMMARY | 2024-12-19 18:26 | XMS_ITS | Encounter Summary ---
Author Organization [facility] Address [address] [facility] [address] [place] [address] Phone Care Team Providers Care Scheduler Conveyor Name Role Phone Maksim Sidhu MD Primary Care Provider [phone] Addie Cao MD Unavailable [phone] Cordelia Hoyt RN Unavailable GEO [email or web address] Gris Fritz RN Unavailable [email or web address] Cate Grady RN Unavailable [email or web address] Encounter Details Date Type Department Care Team (Late st Contact Info) Description 05/11/2024 Procedure Pass [facility] Periop [address] [place] [address] Social History Tobacco Use Types Packs/Day Years Used Date Smoking Tobacco: Never Passive Smoke Exposure: Past Smokeless Tobacco: Never Passive Exposure Comments:no thing significant Alcohol Use Standard Drinks/Week Comments Not Currently 2 (1 standard drink = 0.6 oz pur e alcohol) nothing since October 2023 Child or Family Care Answer Date Record ed Do you have problems with on e of the following making it difficult for you to work, study, or receive health care? No 11/02/2023 Education Answer Date Recorded Are you interested in more education? Not on paolo e 10/26/2023 Are you concerned about learning? Not on file 10/26/2023 No 10/26/2023 No 10/26/2023 Food Answer Date Recorded Within the past 6 months we worried whether our food would run out before we got money to buy more. Never True 01/03/2024 Within the past 6 months the food we bought just didn't last and we didn't have enough money to get more. Never True Residential Stability Answer Date Recor ded What is your housing situation today? I have bill sing 01/03/2024 How many times have you move d in the past 12 months? Zero (I did not move) 01/03/2024 Paying for Meds Answer Date Recorded Do you have trouble paying for medicines? No 01/03/2024 Paying Utility Bills Answer Date Record ed Do you have trouble paying your heating or elect ricity bill? No 01/03/2024 Transportation Answer Date Recorded Has the lack of transportati on kept you from medical appointments or from getting medications? No 01/03/2024 Digital Access Answer Date Recorded No 01/03/2024 Yes 01/03/2024 Do you have reliable internet access at home? Ye s 01/03/2024 Do you have a device (e.g., phone, tablet, computer) with a working camera? Yes 01/03/2024 Intimate Partner Violence Answer Date R ecorded Are you denied basic needs s uch as food, clothing, or medical care? Deferred 05/11/2024 In the past 12 months have y ou been in a relationship with a person who hurts, threatens, or tries to control you? Deferred 05/11/2024 Are you denied basic needs s uch as food, clothing, or medical care? Deferred 05/11/2024 In the past 12 months have y ou been in a relationship with a person who hurts, threatens, or tries to control you? Deferred 05/11/2024 Comments No Sex and Gender Information Value Date Recorded Sex Assigned at Not on file Legal Sex Female 7:03 PM EST Gender Identity Not on file Sexual Orientation Not on file documented as of this encounter Plan of Treatment Upcoming Encounters Date Type Department Care Team (Late st Contact Info) Description 02/07/2025 9:50 AM EST Blood Draw Laboratory Services, [facility] [place] [facility] [place] [address] [address] Violeta Iyer MD [address] [place] [address] [email or web address] 02/07/2025 11:00 AM EST Office Visit [facility], [facility], [facility] at [address] [address] Breanne Henderson CNP [address] [facility] [place] [place] [address] [email or web address] 05/21/2025 7:30 AM EST Blood Draw Laboratory Services, [facility] at [address] [address] Cindy Negrete MD [address] [place] [address] [email or web address] 05/21/2025 8:30 AM EST Office Visit [facility], [facility], [facility] at [address] [address] Cindy Negrete MD [address] [place] [address] [email or web address] documented as of this encounter Visit Diagnoses Not on filedocumented in this encounter Care Teams Scheduler Conveyor Relationship Specialty Start Date End Date Maksim Sidhu MD [address] [place] [address] PCP - General Internal Medicine 10/25/23 Addie Cao MD [address] [place] [address] Referring Physician Gynecologic Oncology 10/25/23 Cordelia Hoyt RN [address] [place] [address] [email or web address] Primary Infusion Nurse 01/11/24 Gris Fritz RN [address] [place] [address] [email or web address] Associate Infusion Nurse 01/11/24 Cate Grady RN [address] [place] [phone] [email or web address] Associate Infusion Nurse 01/11/24 documented as of this encounter Additional Source Comments The information contained in this document represents components of the legal health record. It is not the complete legal health record.[facility]
--- OUTSIDE RECORDS SUMMARY | 2024-12-19 18:26 | XMS_ITS | Encounter Summary ---
Author Organization Loc[facility] Address [address] [employer] [facility] [address] [place] [address] Phone Care Team Providers Care Seafood Manager Name Role Phone Maksim Sidhu MD Primary Care Provider [phone] Addie Cao MD Unavailable [phone] Cordelia Hoyt RN Unavailable GEO [email or web address] Gris Fritz RN Unavailable [email or web address] Cate Grady RN Unavailable [email or web address] Encounter Details Date Type Department Care Team (Late st Contact Info) Description 05/05/2024 Procedure Pass [facility] [place] [facility] [place] [address] [facility] [address] [place] [address] Social History Tobacco Use Types Packs/Day Years [...] uch as food, clothing, or medical care? No 02/14/2024 In the past 12 months have y ou been in a relationship with a person who hurts, threatens, or tries to control you? No 02/14/2024 Are you denied basic needs s uch as food, clothing, or medical care? No 02/14/2024 In the past 12 months have y ou been in a relationship with a person who hurts, threatens, or tries to control you? No 02/14/2024 Comments No Sex and Gender Information Value Date Recorded Sex Assigned at Not on file Legal Sex Female 7:03 PM EST Gender Identity Not on file Sexual Orientation Not on file documented as of this encounter Plan of Treatment Upcoming Encounters Date Type Department Care Team (Late st Contact Info) Description 02/07/2025 9:50 AM EST [facility] [place] [facility] [place] [address] Violeta Iyer MD [address] [place] [address] [email or web address] 02/07/2025 11:00 AM EST Office Visit [facility], [facility], [facility] at [address] [address] Breanne Henderson CNP [address] [facility] [address] [place] [address] [email or web address] 05/21/2025 7:30 AM EST Blood Draw Laboratory Services, [facility] at [address] [address] Cindy Negrete MD [address] [place] [address] [email or web address] 05/21/2025 8:30 AM EST Office Visit [facility], [facility], [facility] at [address] [address] Cindy Negrete MD [address] [place] [address] [email or web address] documented as of this encounter Visit Diagnoses Not on filedocumented in this encounter Care Teams Seafood Manager Relationship Specialty Start Date End Date Maksim Sidhu MD [address] [place] [address] PCP - General Internal Medicine 10/25/23 Addie Cao MD [address] [address] Referring Physician Gynecologic Oncology 10/25/23 Cordelia Hoyt RN [address] [place] [address] [email or web address] Primary Infusion Nurse 01/11/24 Gris Fritz RN [address] [place] [phone] [email or web address] Associate Infusion Nurse 01/11/24 Cate Grady RN [address] [place] [phone] [email or web address] Associate Infusion Nurse 01/11/24 documented as of this encounter Additional Source Comments The information contained in this document represents components of the legal health record. It is not the complete legal health record.[facility]
--- OUTSIDE RECORDS SUMMARY | 2024-12-19 18:26 | XMS_ITS | Clinical Summary ---
Author Organization [address] [facility] Address [address] [place] [phone] Phone Care Team Providers Care Cream Hauler Name Role Phone Stephania Corona MD Primary Care Provider [phone] Allergies Active Allergy Reactions Criticality Noted Date Comments Egg 12/27/2020 GI issues Other 02/11/2022 Seasonal Medications cholecalciferol (VITAMIN D-3) 50 mcg (2,000 unit) tablet Take 1 Tablet by mouth daily. 2 Active multivitamin (MULTI-DAY ORAL) Take by mouth. Activ e fluticasone propionate (FLONASE) 50 mcg/actuation nasal spray Administer 1 spray into each nostril 2 (two) times a day. Shake gently. Before first use, prime pump. After use, clean tip and replace cap. Active atorvastatin (LIPITOR) 10 mg tablet TAKE 1 TABLET BY MOUTH 1 TIME EACH DAY. 90 tablet 1 5 Active amLODIPine (NORVASC) 5 mg tablet TAKE 1 TABLET BY MOUTH 1 TIME EACH DAY. 90 tablet 1 5 Active alendronate (FOSAMAX) 70 mg tablet TAKE 1 TABLET BY MOUTH ONE TIME PER WEEK 12 tablet 1 5 Active Active Problems Problem Noted Date Diagnosed Date Hyperlipidemia 03/16/2024 Assessment & Plan (03/16/2024 9:34 [...] 12/19/2020 Overview (02/10/2024): S/P EVLT and phlebectomy. Resolved Problems Problem Noted Date Diagnosed Date Resolved Date History of total abdominal hysterectomy 03/16/2024 07/28/2024 H/O bilateral salpingo-oophorectomy 03/16/2024 07/28/2024 History of splenectomy 03/16/202407/28 Encounters Date Type Department Care Team Description 12/15/2024 11:00 AM EDT Office Visit Walk-In Clinic - [address] [phone] Arie Ellis PA Impacted cerumen of both ears (Primary Dx) 10/10/2024 8:30 AM EDT Telemedicine Internal Medicine - [address] [phone] Encounter for subsequent annual wellness visit (AWV) in Medicare patient (Primary Dx) 09/18/2024 Telephone Internal Medicine - [address] [phone] Nilda Benites MA from Last 3 Months Immunizations Name Administration [...] bilaterally. OTHER SURGICAL HISTORY 06/23/2018 Left PROCEDURE: IA ENDOVEN ABLTJ INCMPTNT VEIN XTR LASER 2ND+ VEINS; COMMENT: Dr. Lena Hope CATARACT EXTRACTION PROCEDURE: HISTORICAL CATARACT REMOVAL SECTION PROCEDURE: HISTORICAL DELIVERY; COMMENT: x 3 COLONOSCOPY 07/31/2020 PROCEDURE: HISTORICAL COLONOSCOPY; COMMENT: Diverticulosis in sigmoid colon, internal hemorrhoids without prolapse, otherwise normal, no specimens collected. Repeat 5 yrs SPLENECTOMY, TOTAL N/A Medical History Medical History Date Comments Osteopenia [...] neoplasm of ghazal th ovaries (HCC) S/P [place]av[place]-Bso 12/03/2023 DX:S/P GAVIOTA-BSO H/O bilateral salpingo-oophorectomy 03/16/2024 History of splenectomy 03/16/2024 Family History Medical History Relation Name Comments Breast cancer Aunt 1 maternal Breast cancer Aunt 2 maternal No Known Problems Daughter Hypertension Father DEmentia, carot id stenosis, Colon Polyps Osteoporosis Mother early onset dem entia, Hypertension, Dementia Kidney cancer Other 1 paternal cousin Bladder Cancer Other 2 paternal cousin other Sister colon polyps No Known Problems Son Relation Name Status Comments Aunt 1 maternal Aunt 2 maternal Daughter Alive Father Mother Other 1 paternal cousin Other 2 paternal cousin Sister Alive Son Alive Social History Tobacco Use Types Packs/Day Years [...] care for your loved ones. For example, maternal child nurse or elderly care for an older adult? [...] EDT Inhaled Oxygen Concentration - - Weight 56.7 kg (125 lb 1.6 oz) 07/28/2024 8:54 A M EDT Height 158.8 cm (5' 2.5 ) 03/16/2024 9:07 AM EST Body Mass Index 22.52 03/16/2024 9:07 AM EST Plan of Treatment Upcoming Encounters Date Type Department Care Team (Late st Contact Info) Description 03/13/2025 10:00 AM EST Office Visit Internal Medicine - [facility] [address] [place], [place] [phone] Stephania Corona MD [address] [place], [place] Health Maintenance Due Date Last Done Comments Breast Cancer Screening 1955 Meningococcal B Vaccine (3 of 5 - Increased Risk Bexsero 3-dose series) 05/15/2024 01/12/2024, 11/13/2023 Osteoporosis Screening (Bone Density Screening) 09/20/2024 09/21/2023, 09/21/2023, 08/28/2021 COVID-19 Vaccine ( season) 2024 08/04/2021, 01/24/2021, 06/28/2020, Additional history exists Influenza Vaccine (#1) 2024 , 12/08/2022, 01/07/2022, Additional history exists Colorectal Cancer Screening: Colonoscopy 07/31/2025 07/31/2020 Cervical Cancer Screening: Pap Smear 09/22/2025 09/22/2024, 03/13/2022 Falls Risk Assessment 10/10/2025 10/10/2024, 024 Medicare Annual Wellness Visit 10/10/2025 10/10/2024 Social Influencers of Health Screening 10/10/2025 10/10/2024 Hypertension/CHF/CAD Annual BMP Blood Test 11/20/2025 11/20/2024, 08/02/2024, 05/03/2024, Additional history exists Cholesterol Screening (Lipid Panel) 09/09/2028 09/10/2023, 09/10/2023 [...] Additional history exists HIB Vaccines Completed 11/14/2023 Depression Screening Completed 10/10/2024, 08/18/19 HPV Vaccines Aged Out No longer eligi [...] Procedure Name Priority Date/Time Associated Diagnosis Comments ANNUAL BMP BLOOD TEST Routine 12/21/2023 [facility] DEXA AXIAL SKELETON Routine 09/21/2023 8:58 AM EDT Encounter for screening for osteoporosis LIPID PANEL Routine 09/10/2023 DEPRESSION SCREENING Routine 08/18/2023 FALLS RISK ASSESSMENT Routine 08/18/2023 PAP SMEAR Routine 03/13/2022 HEPATITIS C SCREENING Routine 04/30/2021 COLONOSCOPY Routine 07/31/2020 from Last 3 Months or Most Recently Relevant to Health Maintenance Results * [facility] DEXA AXIAL SKELETON (09/21/2023 8:58 AM EDT) Anatomical Region Laterality Modality Mammography 09/21/2023 8:12 AM EDT Narrative 09/21/2023 8:58 AM EDT [facility] Diagnostic Imaging Department [address] [place] [address] Patient: GABI BROOKS /Age/Sex: 1955 - 67 - F Unit#: [id number] Location/Status: [facility] CLI Mnemonic/Ordering Site: MAMDEXAAX/SPMAM Ordering Physician: MAKSIM FRYE MD [facility] Dexa Axial Skeleton - 09/21/23848 Report Status:Signed History: Low estrogen state due to menopause. Parent hip fracture. Takes alendronate. Comparison: No comparison imaging at this institution. Findings: Bone densitometry is performed utilizing dual energy x-ray absorptiometry (DXA) in the [employer] unit. The lumbar spine and proximal femora are evaluated in the AP projection. The FRAX questionaire was completed. The results indicate low bone mass (osteopenia), with a left femoral neck T- score of -1.9. The Z score is -0.1, indicating bone mineral density within the range of normal for age. The detailed DEXA report will be mailed to the referring physician's office. [employer] FRAX: 10-year Probability of Fracture: Major Osteoporotic 16.5 percent Hip 2.7 percent. IMPRESSION: Osteopenia. [id number] Dictating Physician: FELICITA LEON MD Electronically Signed by: FELICITA LEON MD Dic Date/Time: 09/21/23856 Sign date/Time: 09/21/2358 Procedure Note Felicita Leon MD - 01/12/2024 [facility] Diagnostic Imaging Department [address] [place] [address] Patient: GABI BROOKS /Age/Sex: 1955 - 67 - F Unit#: [id number] Location/Status: [facility]/REG CLI Mnemonic[facility] Ordering Physician: MAKSIM FRYE MD [facility] Dexa Axial Skeleton - 09/21/23848 Report Status:Signed History: Low estrogen state due to menopause. Parent hip fracture. Takes alendronate. Comparison: No comparison imaging at this institution. Findings: Bone densitometry is performed utilizing dual energy x-ray absorptiometry(DXA) in the [employer] unit. The lumbar spine and proximal femora [...] 16.5 percent Hip 2.7 percent. IMPRESSION: Osteopenia. [id number] Dictating Physician: FELICITA LEON MD Electronically Signed by: FELICITA LEON MD Dic Date/Time: 09/21/23 0857 Sign date/Time: 09/21/23 0858 Result [facility] Maksim Frye MD IMG BI PROCEDURES Final R esult * Lipid panel (09/10/2023) [facility] LDL/HDL Ratio 2 0 - 4 Triglycerides 82 0 - 150 mg/dL Cholesterol 181 0 - 200 mg/dL HDL 78 >=40 mg/dL LDL Cholesterol 87 0 - 100 mg/dL Blood Venous blood specimen / Unknown Result [facility] LAB BLOOD ORDERABLES Ree l Result * Falls Risk Assessment (08/18/2023) [facility] Falls Risk Assessment Abstracted Result [facility] HEALTH MAINTENANCE Final Result * Depression Screening (08/18/2023) [facility] Depression Screening Abstracted Result [facility] HEALTH MAINTENANCE Final Result * Pap Smear (03/13/2022) [facility] Pap smear Negative, Abstracted Result [facility] HEALTH MAINTENANCE Final Result * Hepatitis C Screening (04/30/2021) [facility] Hepatitis C Screening Abstracted Result [facility] HEALTH MAINTENANCE Final Result * Colonoscopy (07/31/2020) [facility] Colonoscopy No interpretation , Abstracted Comment:Diverticulosis in si gmoid colon, internal hemorrhoids, otherwise normal- no speciments taken. Repeat 5 yrs- family hx. Anatomical Region Laterality Modality Other Result [facility] HEALTH MAINTENANCE Final Result from Last 3 Months or Most Recently Relevant to Health Maintenance Insurance MEDICARE [facility] [place] [id number] Care Teams Cream Hauler Relationship Specialty Start Date End Date Stephania Corona MD [address] [facility] [facility] [place] [phone] PCP - General Internal Medicine 10/27/24
--- OUTSIDE RECORDS SUMMARY | 2024-12-19 18:26 | XMS_ITS | Encounter Summary ---
Author Organization [facility] Address [address] [facility] [address] [place] [address] Phone Care Team Providers Care Construction Producer Name Role Phone Maksim Sidhu MD Primary Care Provider [phone] Addie Cao MD Unavailable [phone] Cordelia Hoyt RN Unavailable GEO [email or web address] Gris Fritz RN Unavailable Bruce@ [email or web address] Cate Grady RN Unavailable [email or web address] Encounter Details Date Type Department Care Team (Late st Contact Info) Description 04/05/2024 Procedure Pass [facility] [place] [address] [facility] [address] [place] [address] Social History Tobacco Use Types [...] 9:50 AM EST [facility] [place] at [address] [address] Violeta Iyer MD [address] [place] [address] [email or web address] 02/07/2025 11:00 AM EST Office Visit [facility], [facility], [facility] at [address] [address] Breanne Henderson CNP [address] [facility] [address] [place] [address] [email or web address] 05/21/2025 7:30 AM EST Blood Draw Laboratory Services, [facility] at [address] [address] Cindy Negrete MD [address] [place] [address] [email or web address] 05/21/2025 8:30 AM EST Office Visit [facility], [facility], [facility] at [address] [address] Cindy Negrete MD [address] [place] [address] [email or web address] documented as of this encounter Visit Diagnoses Not on filedocumented in this encounter Care Teams Construction Producer Relationship Specialty Start Date End Date Maksim Sidhu MD [address] [place] [address] PCP - General Internal Medicine 10/25/23 Addie Cao MD [address] [address] Referring Physician Gynecologic Oncology 10/25/23 Cordelia Hoyt RN [address] [place] [address] [email or web address] Primary Infusion Nurse 01/11/24 Gris Fritz RN [address] [place] [address] [email or web address] Associate Infusion Nurse 01/11/24 Cate Grady RN [address] [place] [address] [email or web address] Associate Infusion Nurse 01/11/24 documented as of this encounter Additional Source Comments The information contained in this document represents components of the legal health record. It is not the complete legal health record.[facility]
--- OUTSIDE RECORDS SUMMARY | 2024-12-19 18:26 | XMS_ITS | Encounter Summary ---
Author Organization [facility] Address [address] [facility] [address] [place] [address] Phone Care Team Providers Care Field Superintendent Name Role Phone Maksim Sidhu MD Primary Care Provider [phone] Addie Cao MD Unavailable [phone] Cordelia Hoyt RN Unavailable GEO [email or web address] Gris Fritz RN Unavailable Bruce@ [email or web address] Cate Grady RN Unavailable [email or web address] Encounter Details Date Type Department Care Team (Late st Contact Info) Description 05/05/2024 Procedure Pass [facility] [place] [address] [facility] 3rd [place] [address] Social History Tobacco Use Types [...] 9:50 AM EST [facility] [place] [address] Violeta Iyer MD [address] [place] [address] [email or web address] 02/07/2025 11:00 AM EST Office Visit [facility], [facility], [facility] at [address] [address] rBeanne Henderson CNP [address] [facility] [address] [place] [address] [email or web address] 05/21/2025 7:30 AM EST Blood Draw Laboratory Services, [facility] at [address] [address] Cindy Negrete MD [address] [place] [address] [email or web address] 05/21/2025 8:30 AM EST Office Visit [facility], [facility], [facility] at [address] [address] Cindy Negrete MD [address] [place] [address] [email or web address] documented as of this encounter Visit Diagnoses Not on filedocumented in this encounter Care Teams Field Superintendent Relationship Specialty Start Date End Date Maksim Sidhu MD [address] [place] [address] PCP - General Internal Medicine 10/25/23 Addie Cao MD [address] [address] Referring Physician Gynecologic Oncology 10/25/23 Cordelia Hoyt RN [address] [place] [address] [email or web address] Primary Infusion Nurse 01/11/24 Gris Fritz RN [address] [place] [address] [email or web address] Associate Infusion Nurse 01/11/24 Cate Grady RN [address] [place] [address] [email or web address] Associate Infusion Nurse 01/11/24 documented as of this encounter Additional Source Comments The information contained in this document represents components of the legal health record. It is not the complete legal health record.[facility]
--- OUTSIDE RECORDS SUMMARY | 2024-12-19 18:27 | XMS_ITS | Encounter Summary ---
Author Organization [facility] Address [address] [address] Phone Care Team Providers Care Anesthesiology Technologist Name Role Phone Maksim Sidhu MD Primary Care Provider [phone] Addie Cao MD Unavailable [phone] Cordelia Hoyt RN Unavailable GEO [email or web address] Gris Fritz RN Unavailable [email or web address] Cate Grady RN Unavailable [email or web address] Encounter Details Date Type Department Care Team (Late st Contact Info) Description 11/03/2023 Ancillary Orders Outside Imaging Cindy Negrete MD [address] [place] [address] [email or web address] Social History Tobacco Use Types Packs/Day Years Used Date Smoking Tobacco: Never Assessed Child or Family Care Answer Date Record [...] got money to buy more. Never True 11/02/2023 Within the past 6 months the food we bought just didn't last and we didn't have enough money to get more. Never True Residential Stability Answer Date Recor ded What is your housing situation today? I have bill sing 11/02/2023 How many times have you move d in the past 12 months? Zero (I did not move) 11/02/2023 Paying for Meds Answer Date Recorded Do you have trouble paying for medicines? No 11/02/2023 Paying Utility Bills Answer Date Record ed Do you have trouble paying your heating or elect ricity bill? No 11/02/2023 Transportation Answer Date Recorded Has the lack of transportati on kept you from medical appointments or from getting medications? No 11/02/2023 Digital Access Answer Date Recorded No 10/26/2023 No 10/26/2023 Reliable internet access at home? Not on file 10/26/2023 Device with a working camera? Not on file Comments Unknown Sex and Gender Information Value Date Recorded Sex Assigned at Not on file Legal Sex Female 7:03 PM EST Gender Identity Not on file Sexual Orientation Not on file documented as of this encounter Plan of Treatment Upcoming Encounters Date Type Department Care Team (Late st Contact Info) Description 02/07/2025 9:50 AM EST Blood Draw Laboratory Services, [facility] at [address] [address] Violeta Iyer MD [address] [place] [address] [email or web address] 02/07/2025 11:00 AM EST Office Visit [facility], [facility], [facility] at [address] [address] Breanne Henderson CNP [address] [place] [address] [place] [address] [email or web address] 05/21/2025 7:30 AM EST Blood Draw Laboratory Services, [facility] at [address] [address] Cindy Negrete MD [address] [place] [address] @[email or web address] 05/21/2025 8:30 AM EST Office Visit [facility], [facility], [facility] at [address] [address] Cindy Negrete MD [address] [place] [address] [email or web address] documented as of this encounter Results * NM PET Whole Body Outside (No Interpretation) (11/02/2023 12:00 AM EDT) Other N[facility]ative [facility] 11/03/2023 2:45 PM EDT This study is for PACS storage only and not for interpretation. us Cindy Negrete MD IMG OUTSIDE IMAGING W/OUT IN TERPRETATION Final Result Performing Organization Address City/State/[facility] Co de Phone Number ERIC_[facility] documented in this encounter Visit Diagnoses Not on filedocumented in this encounter Care Teams Anesthesiology Technologist Relationship Specialty Start Date End Date Maksim Sidhu MD [address] [place] [address] PCP - General Internal Medicine 10/25/23 Addie Cao MD [address] [address] Referring Physician Gynecologic Oncology 10/25/23 Cordelia Hoyt RN [address] [place] [address] [email or web address] .[facility] Primary Infusion Nurse 01/11/24 Gris Fritz RN [address] [place] [address] [email or web address] Associate Infusion Nurse 01/11/24 Cate Grady RN [address] [place] [address] [email or web address] Associate Infusion Nurse 01/11/24 documented as of this encounter Additional Source Comments The information contained in this document represents components of the legal health record. It is not the complete legal health record.[facility]
--- OUTSIDE RECORDS SUMMARY | 2024-12-19 18:27 | XMS_ITS | Clinical Summary ---
Author Organization [facility] Address [address] [address] Phone Care Team Providers Care Patent Drafter Name Role Phone Maksim Sidhu MD Primary Care Provider [phone] Addie Cao MD Unavailable [phone] Cordelia Hoyt RN Unavailable [email or web address] Gris Fritz RN Unavailable [email or web address] Cate Grady RN Unavailable [email or web address] Allergies No known active allergies Medications alendronate (FOSAMAX) 70 MG tablet Take 1 tablet by mouth once a week. 4 Active amLODIPine (NORVASC) 5 MG tablet Take 5 mg by mouth daily. 4 Active atorvastatin (LIPITOR) 10 MG tablet Take 10 mg by mouth daily. 4 Active acetaminophen (TYLENOL) 325 mg tablet Take 3 tablets (975 mg total) by mouth every 6 (six) hours as needed. 30 tablet 4 Active cetirizine (ZYRTEC) 10 MG tablet Take 10 mg by mouth daily. Active fluticasone propionate (FLONASE) 50 mcg/actuation nasal spray 1 spray by Nasal route daily. Active acetaminophen (TYLENOL) 325 mg tablet Take 2 tablets (650 mg total) by mouth every 4 (four) hours as needed for pain (specific location in comments). 5 Active gabapentin (NEURONTIN) 100 MG capsule Take 2 capsules (200 mg total) by mouth nightly at bedtime. 60 capsule 5 5 11/21/19 25 Discontinu ed(No longer taking) Active Problems Problem Noted Date Diagnosed Date Seasonal allergies 12/14/2023 Assessment & Plan (02/15/2024 12:25 PM EST): Chronic. Managed on home Zyrtec 10mg PO daily and Flonase daily. -c/h regimen Assessment & Plan (02/14/2024 3:31 PM EST): Chronic. Managed on home Zyrtec 10mg PO daily and Flonase daily. -c/h regimen Assessment & Plan (01/24/2024 2:12 PM EDT): Chronic. Managed on home Zyrtec 10mg PO daily and Flonase daily. - Continue home regimen Assessment & Plan (01/03/2024 2:50 PM EDT): Chronic. Managed on home Zyrtec 10mg PO daily and Flonase daily. - Continue home Zyrtec PO daily - Continue home Flonase daily Assessment & Plan (12/15/2023 4:21 PM EDT): Chronic. Managed on home Zyrtec 10mg PO daily and Flonase daily. 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 Monitoring . Anemia with malignancy and active treatment plan Total time spent on 02/14/2024 for this visit in hbnt-ob-lbgb and non uzho-dp-gecf time reviewing, obtaining, and documenting clinical information, coordinating with the care team and other specialists, and counseling the patient: 30 minutes. Assessment & Plan (01/24/2024 2:12 PM EDT): Chronic, managed on home atorvastatin 10mg PO daily. - Continue home atorvastatin Assessment & Plan (01/03/2024 2:50 PM EDT): Chronic, managed on home atorvastatin 10mg PO daily. - Continue home atorvastatin PO daily Assessment & Plan (12/15/2023 4:19 PM EDT): Chronic, managed on home atorvastatin 10mg PO daily. 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 S/p GAVIOTA BSO, omentectomy, splenectomy, removal of liver and mesorectal nodules, and excision of umbilical hernia sac 11/11/2023. Currently receiving IV/IP Taxol/IP Cisplatin, last C3D8 01/30. Admitted for C4 of treatment. Primary Oncologist: Violeta Iyer. - Chemo orders per prim onc: plan for 24-hour infusion of IV taxol on 02/14 followed by intraperitoneal cisplatin on 02/15 - Avoid zofran x 72h after aloxi dose given - Continue home compazine PRN and simethicone PRN - Continue home Ativan nightly/PRN - Added Oxycodone 5 mg po q 4 hrs prn abdominal pain, senna 2 tabs BID per onc - IP chemotherapy can be uncomfortable, prim onc okay with IV narcotics being administered PRN to help her tolerate the infusion. - No additional labs needed during admit per outpatient onc - DVT ppx; ppx Lovenox - Day 3-5 (after discharge): decadron 8 mg (BID on days 3-5) and Compazine 10 mg q6h standing. Zofran 8 mg bid standing starting on day 5. Assessment & Plan (02/14/2024 3:31 PM EST): Initially dx June 2023. S/p GAVIOTA BSO, omentectomy, splenectomy, removal of liver and mesorectal nodules, and excision of umbilical hernia sac 11/11/2023. Currently receiving IV/IP Taxol/IP Cisplatin, C3D8 01/30. Admitted for C4 of treatment. Primary Oncologist: Violeta Iyer. - Chemo orders per prim onc: plan for 24-hour infusion of IV taxol followed by intraperitoneal cisplatin - Avoid zofran x 72h after aloxi dose given - Continue home compazine PRN and simethicone PRN - Continue home Ativan nightly/PRN - Add Oxycodone 5 mg po q 4 hrs prn abdominal pain, senna 2 tabs BID per onc - No additional labs needed during admit per outpatient onc - DVT ppx; ppx Lovenox - IP chemotherapy can be uncomfortable, we are okay with IV narcotics being administered PRN to help her tolerate the infusion. -Day 3-5 (after discharge): decadron 8 mg (BID on days 3-5) and Compazine 10 mg q6 standing -Zofran 8 mg bid standing starting on day 5 Assessment & Plan (01/25/2024 9:39 AM EDT): Initially dx June 2023. S/p GAVIOTA BSO, omentectomy, splenectomy, removal of liver and mesorectal nodules, and excision of umbilical hernia sac 11/11/2023. Currently receiving IV/IP Taxol/IP Cisplatin, last C2D8 01/10. Admitted for C3 of treatment. Primary Oncologist: Violeta Iyer. -C3D1 IV Taxol (DR 110mg/m2 for neuropathy) to begin 01/24 -C3D8 IP Cisplatin (DR 75mg/mg2 for nausea) to begin Thursday 01/25---OK for discharge after completion if she is feeling well. - Continue home compazine PRN and simethicone PRN - Continue home Ativan PRN - No additional labs needed during admit per outpatient onc - DVT ppx; ppx Lovenox Assessment & Plan (01/04/2024 1:08 PM EDT): Initially dx June 2023. S/p GAVIOTA BSO, omentectomy, splenectomy, removal of liver and mesorectal nodules, and excision of umbilical hernia sac 11/11/2023. Currently receiving IV/IP Taxol/IP Cisplatin, last C1D8 12/20. Admitted for C2 of treatment D1 01/03. Primary Oncologist: Violeta Iyer. - Plan per Prim Onc: aware of admit - No labs needed during admission unless clinically indicated per outpatient team - Continue home oxycodone 2.5-5mg PO q4hr PRN; ok for IV PRN narcotics if pain poorly controlled with oxycodone during IP chemotherapy - Getting cinvanti and aloxi (avoid zofran) - DVT ppx: Lovenox ppx Assessment & Plan (12/15/2023 4:19 PM EDT): Initially dx June 2023. S/p GAVIOTA BSO, omentectomy, splenectomy, removal of liver and mesorectal nodules, and excision of umbilical hernia sac 11/11/2023. Of note, was d/c-ed with Apixaban 2.5mg BID post op for 28 day course for postop DVT ppx. Now planned for inpt chemo (IV Taxol w/ IP cisplatin). C1D1 12/14. Primary Oncologist: Violeta Iyer. - Plan per Prim Onc: aware of admit - C1D1 started 12/14 (24h Taxol infusion, f/b intraperitoneal cisplatin 12/15) - No labs needed during admission unless clinically indicated - Continue home oxycodone 2.5-5mg PO q4hr PRN; ok for IV PRN narcotics if pain poorly controlled with oxycodone during IP chemotherapy - DVT ppx: Lovenox ppx - Code Status: Full Code Primary hypertension 09/15/2023 Assessment & Plan (02/15/2024 12:25 PM EST): Chronic. On home regimen amlodipine 5mg PO daily. -c/h amlodopine Assessment & Plan (02/14/2024 5:49 PM EST): Chronic. On home regimen amlodipine 5mg PO daily. -c/h amlodopine Assessment & Plan (01/24/2024 2:10 PM EDT): Chronic. On home regimen amlodipine 5mg PO daily. - Continue home amlodipine Assessment & Plan (01/03/2024 2:50 PM EDT): Chronic. Normotensive on admission. - Continue home amlodipine 5mg PO daily Assessment & Plan (12/15/2023 4:16 PM EDT): Chronic. Normotensive on admission. - Continue home amlodipine 5mg PO daily DDD (degenerative disc disease), cervical 2020 Overview (11/03/2023): Multilevel. Lordotic loss w/ slight degrees of anterolithesis at C4-5 and C7-T1, cervical spine xray 06/06/2019. History of cataract 12/19/2020 Overview (11/03/2023): s/p surgery, bilaterally. Mitral valve prolapse 12/19/2020 Overview (11/03/2023): Per provider problem list. Varicose veins of legs 12/19/2020 Carcinoma in situ of breast 2009 Overview (11/03/2023): s/p needle loc excisional bx(high grade DCIS multifocal er/pr negative) Proceeded to Right mastectomy with sentinel node evaluation 01-05 Assessment & Plan (02/15/2024 9:56 AM EST): For historical reference. Dx in 2010 w/ DCIS R breast, ER/[place] negative. Treated with mastectomy, RSLN biopsy with immediate reconstruction. Follows with [facility] with Dr. Valles. Assessment & Plan (02/14/2024 5:49 PM EST): For historical reference. Dx in 2009, DCIS R breast, ER/[place] negative. Treated with mastectomy, RSLN biopsy with immediate reconstrution- follows with [facility] with Dr. Rodriguez Assessment & Plan (01/24/2024 2:09 PM EDT): For historical reference. Dx in 2009, DCIS R breast, ER/[place] negative. Treated with mastectomy, RSLN biopsy with immediate reconstrution- follows with [facility] with Dr. Rodriguez Assessment & Plan (01/03/2024 2:37 PM EDT): For historical reference. Dx in 2009, DCIS R breast, ER/[place] negative. Treated with mastectomy, RSLN biopsy with immediate reconstrution- follows with [facility] with Dr. Rodriguez Assessment & Plan (12/14/2023 7:09 AM EDT): For historical reference. Dx in 2009, DCIS R breast, ER/[place] negative. Treated with mastectomy, RSLN biopsy with immediate reconstrution- follows with [facility] with Dr. Rodriguez Encounters Date Type Department Care Team Description 11/20/2024 8:00 AM EDT Office Visit [facility], [facility], [facility] at [address] [address] Cindy Negrete MD Malignant neoplasm of both ovaries (Primary Dx) 11/20/2024 Orders Only [facility], [facility] at [address] [address] Cindy Negrete MD Malignant neoplasm of both ovaries (Primary Dx) 09/28/2024 Telephone [facility], [facility], [facility] [address] [facility] [place] [address] Fela Brown, RN Results 09/28/2024 Telephone [facility] [address] [place] [address] Fela Brown RN Results 09/22/2024 3:00 PM EDT Office Visit [facility], [facility], [facility] [address] [facility] [place] [address] Felicia Packer PA-C Davis, Cindy Zaldivar MD Malignant neoplasm of ovary, unspecified laterality (Primary Dx); Hematuria, unspecified type; Abnormal vaginal bleeding from Last 3 Months Immunizations Immunization Administration Dates Next Due Hib,PRP-T 11/14/2023 Meningococcal B, OMV (MenB-4C) 01/12/2024,2023 Meningococcal MCV4O 01/12/2024,11/14/2023 Pneumococcal conjugate PCV20 11/13/2023 Social History Tobacco Use Types Packs/Day Years Used Date Smoking Tobacco: Never Passive Smoke Exposure: Past Smokeless Tobacco: Never Tobacco Cessation:Counseling Given: Not Answered Passive Exposure Comments:nothing significant Alcohol Use Standard Drinks/Week Comments Not [...] on file Sexual Orientation Not on file Last Filed Vital Signs Vital Sign Reading Time Taken Comments Blood Pressure 150/80 11/20/2024 7:55 AM EDT Pulse 78 11/20/2024 7:52 AM EDT Temperature 36.4 C (97.5 F) 11/20/2024 7:52 AM EDT Respiratory Rate 16 11/20/2024 7:52 AM EDT Oxygen Saturation 99% 11/20/2024 7:52 AM EDT Inhaled Oxygen Concentration 100% 05/11/2024 1 0:18 AM EST Weight 59.1 kg (130 lb 4.7 oz) 11/20/2024 7:52 A M EDT Height 157.1 cm (5' 1.85 ) 09/22/2024 2:37 PM ED T Body Mass Index 23.95 09/22/2024 2:37 PM EDT Plan of Treatment Upcoming Encounters Date Type Department Care Team (Late st Contact Info) Description 02/07/2025 9:50 AM EST Blood Draw Laboratory Services, [facility] at [address] [address] Violeta Iyer MD [address] [place] [address] [email or web address] 02/07/2025 11:00 AM EST Office Visit [facility], [facility], [facility] [address] [address] Breanne Henderson CNP [address] [facility] [address] [place] [address] [email or web address] 05/21/2025 7:30 AM EST Blood Draw Laboratory Services, [facility] at [address] [address] Cindy Negrete MD [address] [place] [phone] [email or web address] 05/21/2025 8:30 AM EST Office Visit [facility], [facility], [facility] [address] [address] Cindy Negrete MD [address] [place] [email or web address] Health Maintenance Due Date Last Done Comments DEPRESSION SCREENING 1966 HEPATITIS C SCREENING 1972 COLOGUARD 11/09/1999 COLONOSCOPY 11/09/1999 COLORECTAL CANCER SCREENING 11/09/1999 FIT TEST 11/09/1999 FOBT 11/09/1999 SIGMOIDOSCOPY 11/09/1999 VIRTUAL COLONOSCOPY 11/09/1999 OSTEOPOROSIS SCREENING INITIAL (ONE-TIME) 11/09/2019 MENINGOCOCCAL VACCINES (B) (3 of 5 - Increased Risk Bexsero 3-dose series) 05/15/2024 01/12/2024, 11/13/2023 INFLUENZA VACCINE (#1) 2024 , 12/08/2022, 01/07/2022 COVID-19 VACCINE (5 - season) 2024 08/04/2021, 01/24/2021, 06/28/2020, Additional history exists MAMMOGRAM 05/14/2025 05/14/2023 BLOOD PRESSURE 05/23/2025 11/20/2024 LIPID PANEL 09/09/2028 09/10/2023 MENINGOCOCCAL VACCINES (ACWY) (3 - Risk 2-dose series) 01/11/2029 01/12/2024, 11/14/2023 RSV VACCINE (1 - 1-dose 75+ series) 2029 Adult Td,Tdap Booster 12/08/2032 12/08/2022, 020 ZOSTER VACCINES Completed 05/19/2019, 02/21/2019 PNEUMOCOCCAL VACCINES (50+ years) Completed 11/13/2023, 07/27/2022, 12/27/2020 HIB VACCINES Completed 11/14/2023 SMOKING STATUS SCREENING (Once After 26 Yrs) Completed 05/08/2024 HEPATITIS A VACCINES Aged Out No long er eligible based on patient's age to complete this topic Medical Devices Implanted Type Area Hot Dip Plating Supervisor Device Identifier Shelf Expiration Date Model / Serial / Lot Port Infusion 6.6fr Power Injectable Dignity Mid-Sized Shaped Attachable - [id number] Implanted:Qty: 1 on 12/09/2023 by Gaby Corona PA-C at [facility] Right: Chest MEDCOMP 06/26/2028 [id number] / / [id number] Procedures Procedure Name Priority Date/Time Associated Diagnosis Comments CA-125 Routine 11/20/2024 7:19 AM EDT Malignant neoplasm of both ovaries HC BLOOD COUNT COMPLETE AUTO&AUTO DIFRNTL WBC Routine 11/20/2024 7:19 AM EDT Malignant neoplasm of both ovaries MAGNESIUM Routine 11/20/2024 7:19 AM EDT Malignant neoplasm of ovary, unspecified laterality COMPREHENSIVE METABOLIC PANEL Routine 11/20/2024 7:19 AM EDT Malignant neoplasm of ovary, unspecified laterality URINALYSIS Routine 09/22/2024 4:47 PM EDT Hematuria, unspecified type PAP AND HPV W/ GENOTYPING Routine 09/22/2024 4:47 PM EDT Hematuria, unspecified type Abnormal vaginal bleeding Malignant neoplasm of ovary, unspecified laterality URINE CULTURE Routine 09/22/2024 4:47 PM EDT Hematuria, unspecified type PAP TEST Routine 09/22/2024 12:00 AM EDT BI MRI BREAST OUTSIDE (NO INTERPRETATION) Routine 05/14/2023 12:00 AM EST from Last 3 Months or Most Recently Relevant to Health Maintenance Results * (ABNORMAL) Comprehensive metabolic panel (11/20/2024 7:19 AM EDT) SODIUM 142 136 - 145 mmol/L [facility] LIC# [id number] POTASSIUM 3.6 3.4 - 5.1 mmol/L [facility] LIC# [id number] CHLORIDE 105 98 - 107 mmol/L [facility] LIC# [id number] CO2 25 22 - 31 mmol/L [facility] LIC# [id number] BUN 19 6 - 23 mg/dL [facility] LIC# [id number] CREATININE 0.78 0.50 - 1.20 mg/dL [facility]# [id number] GLUCOSE 101(H) 70 - 100 mg/dL [facility]# [id number] ALBUMIN 4.2 3.5 - 5.2 g/dL [facility]# [id number] TOTAL PROTEIN 6.9 6.4 - 8.3 g/dL [facility]# [id number] CALCIUM 9.1 8.8 - 10.7 mg/dL [facility]# [id number] ALKALINE PHOSPHATASE 56 35 - 104 U/L [facility]# [id number] TOTAL BILIRUBIN 1.1 0.2 - 1.2 mg/dL [facility]# [id number] AST 20 <33 U/L [facility]# [id number] ALT 7 <34 U/L [facility]# [id number] GLOBULIN 2.7 2.3 - 4.2 g/dL [facility]# [id number] EGFR 82 >59 mL/min/1.7 3m2 [facility]# [id number] Comment:Estimated glomerular filtration rate calculated using the CKD-EPI refit equation. ANION GAP 12 7 - 17 mmol/L [facility]# [id number] Blood 11/20/2024 7:19 AM EDT 11/20/2024 7:21 AM EDT us Violeta Iyer MD LAB BLOOD ORDERABLES Final Result [facility]# [id number] [address] [place] [address], [facility] * (ABNORMAL) CBC and differential (11/20/2024 7:19 AM EDT) WBC 5.90 4.00 - 10.00 K/uL [facility] LIC# [id number] RBC 3.80(L) 3.90 - 6.00 M/uL [facility] LIC# [id number] HGB 11.2(L) 11.5 - 16.4 g/dL [facility] LIC# [id number] HCT 33.0(L) 36.0 - 48.0 % [facility] LIC# [id number] PLT 305 150 - 450 K/uL [facility] LIC# [id number] MCV 86.8 80.0 - 100.0 fL [facility] LIC# [id number] MCH 29.5 27.0 - 32.0 pg [facility] LIC# [id number] MCHC 33.9 32.0 - 36.0 g/dL [facility] LIC# [id number] RDW 14.1 11.5 - 14.5 % [facility] LIC# [id number] MPV 10.1 8.4 - 12.0 fL [facility] LIC# [id number] NRBC 0.00 0.00 /100 WBCs [facility] LIC# [id number] ABSOLUTE NRBC 0.00 0 K/uL [facility] LIC# [id number] DIFF METHOD Auto [facility] LIC# [id number] NEUTS 48.2 48.0 - 76.0 % [facility] LIC# [id number] LYMPHS 35.4 18.0 - 41.0 % [facility] LIC# [id number] MONOS 12.4(H) 4.0 - 11.0 % [facility] LIC# [id number] EOS 2.7 0.0 - 5.0 % [facility] LIC# [id number] BASOS 1.0 0.00 - 1.50 % [facility] LIC# [id number] % IMMATURE GRANS 0.3 0.00 - 1.00 % [facility] LIC# [id number] ABSOLUTE NEUTS 2.84 1.92 - 7.60 K/uL [facility] LIC# [id number] ABSOLUTE LYMPHS 2.09 0.72 - 4.10 K/uL [facility] LIC# [id number] ABSOLUTE MONOS 0.73 0.16 - 1.10 K/uL [facility] LIC# [id number] ABSOLUTE EOS 0.16 0.00 - 0.50 K/uL [facility] LIC# [id number] ABSOLUTE BASOS 0.06 0.00 - 0.15 K/uL [facility] LIC# [id number] ABS IMMATURE GRANS 0.02 0.00 - 0.10 K/uL [facility] LIC# [id number] Blood 11/20/2024 7:19 AM EDT 11/20/2024 7:21 AM EDT us Cindy Negrete MD LAB BLOOD ORDERABLES Final R esult Performing Organization Address City/[facility] Co de Phone Number [facility] LIC# [id number] [address] [place] [address] * CA-125 (11/20/2024 7:19 AM EDT) CA125 8 6 - 38 U/mL [facility] LIC# [id number] Comment: CA 125 REFERENCE RANGE: POSTMENOPAUSAL 6-32 U/mL PREMENOPAUSAL 6-46 U/mL Blood 11/20/2024 7:19 AM EDT 11/20/2024 7:21 AM EDT us Cindy Negrete MD LAB BLOOD ORDERABLES Final R esult Performing Organization Address City/[facility] Co de Phone Number [facility] LIC# [id number] [address] [place] [address] * Magnesium (11/20/2024 7:19 AM EDT) MAGNESIUM 1.7 1.7 - 2.6 mg/dL [facility] LIC# [id number] Blood 11/20/2024 7:19 AM EDT 11/20/2024 7:21 AM EDT us Violeta Iyer MD LAB BLOOD ORDERABLES Final Result Performing Organization Address City/[facility]/ZIP Co de Phone Number [facility] LIC# [id number] [address] [place] [address] * (ABNORMAL) Urine Culture (09/22/2024 4:47 PM EDT) Special Requests None 09/22/2024 4:34 PM EDT [facility] LIC# [id number] Urine Culture 10,000 TO <50,000 COLONY FORMING UNITS PER ML MIXED ORGANISMS RESEMBLING UROGENITAL MACIEL(A) 09/24/2024 8:36 AM EDT [facility] Urine (Urine) 09/22/2024 4:4 7 PM EDT 09/22/2024 6:02 PM EDT us Felicia Packer PA-C MICROBIOLOGY - GENERAL ORDER MARK Final Result [facility] [address] [place] [address] LIC# [id number] [address] [place] [address] * PAP and HPV w/ Genotyping (09/22/2024 4:47 PM EDT) HPV 16 Not Detected Not Detected [facility] HPV 18 Not Detected Not Detected [facility] HPV High Risk Genotype Other Than 16/18 Not Detected Not Detected [facility] Comment:Interpretation of HP V results may depend on Pap results if both tests were done. Pap Test SEE PATHOLOGY REPORT [facility] Specimen Source [facility] LIC# [id number] Other 09/22/2024 4:47 PM EDT 09/22/2024 6:16 PM EDT us Felicia Packer PA-C BODY FLUIDS AND STOOLS ORDER MARK Final Result [facility] LIC# [id number] [address] [place] [address] [facility] Department of Pathology [address] [place] [address], [facility] [address] [place] [address] * (ABNORMAL) Urinalysis (09/22/2024 4:47 PM EDT) COLOR LT YELLOW(A) Yellow [facility] LIC# [id number] CLARITY Clear Clear [facility] LIC# [id number] GLUCOSE NORMAL NORMAL [facility] LIC# [id number] BILI Negative Negative [facility] LIC# [id number] KETONES Negative Negative [facility] LIC# [id number] SPECIFIC GRAVITY 1.014 1.003 - 1.035 [facility] LIC# [id number] BLOOD Negative Negative [facility] LIC# [id number] PH 5.0 4.6 - 8.0 [facility] LIC# [id number] Protein-UA Negative Negative [facility] LIC# [id number] UROBILINOGEN NORMAL NORMAL [facility] LIC# [id number] NITRITE Negative Negative [facility] LIC# [id number] Leukocyte esterase, ur Negative Negative [facility] LIC# [id number] WBC 1 0 - 9 /hpf [facility] LIC# [id number] RBC 2 0 - 2 /hpf [facility] LIC# [id number] BACTERIA None None /hpf [facility] LIC# [id number] HYALINE CAST 3(H) 0 - 2 /lpf [facility] LIC# [id number] SQUAMOUS CELLS 1(A) None /hpf [facility] LIC# [id number] MUCUS Trace(A) None /hpf [facility] LIC# [id number] Urine (Urine) 09/22/2024 4:4 7 PM EDT 09/22/2024 4:56 PM EDT Felicia HAM-Nini URINE ORDERABLES Final Resul t Performing Organization Address [facility]/ZIP Co de Phone Number [facility] LIC# [id number] [address] [place] [address] * Pap Test (09/22/2024 12:00 AM EDT) 09/22/2024 09/25/2024 Narrative [facility] - 09/27/2024 11:06 AM EDT CASE: [id number] PATIENT: GABI BROOKS Date: 1955 Sex: F [facility] [facility] Department of Pathology [address] [place] [address] CLIA License No.: [id number] Home Insurance Agent: Duncan London MD, PhD Physician: FELICIA PACKER PA-C Procedure Date: 09/22/2024 Boarding Room Fixer: CECELIA Wadsworth (ASCP) THINPREP PAP TEST, VAGINAL FINAL CYTOLOGIC INTERPRETATION SPECIMEN ADEQUACY: Satisfactory for evaluation. INTERPRETATION: NEGATIVE FOR INTRAEPITHELIAL LESION OR MALIGNANCY. AUTOMATED REVIEW: This specimen was prescreened using the ThinPrep Imaging System. CLINICAL DATA LMP: Not given; Unknown Source Vaginal Bleeding VS Hematuria . H O Ovarian Cancer S P Cytoreductive Surgery 2023 TOTAL SLIDES 1 PROCEDURES Screening or High Risk ThinPrep with Auto Pre-Screen - [facility] 1 Final Diagnosis by Homero RAI (ASCP), Electronically signed on Friday September 27, 2024 at 10:59:37AM us Felicia Packer PA-C CYTOLOGY ORDERABLES Final Re sult Performing Organization Address City/[facility]/ZIP Co de Phone Number [facility] [address] [place] [phone] * MRI Breast Outside (No Interpretation) (05/14/2023 12:00 AM EST) Other Narrative [facility] - 11/01/2023 5:01 PM EDT This study is for PACS storage only and not for interpretation. us Cindy Negrete MD IMG OUTSIDE IMAGING W/OUT IN TERPRETATION Final Result PERCIPIO_[facility] from Last 3 Months or Most Recently Relevant to Health Maintenance Insurance MEDICARE PART A & B [facility] MEDICARE SUPPLEMENT MEDICARE PART A & [place] [address] [place] [address] MEDICARE SUPPLEMENT MEDICARE PART A & B MEDICARE SUPPLEMENT MEDICARE PART A & B MEDICARE SUPPLEMENT ([employer]ase) [address] [facility] [place] [id number] MEDICARE PART A & B MEDICARE SUPPLEMENT MEDICARE PART A & B [facility] MEDICARE SUPPLEMENT Advance Directives For more information, please contact: [phone] (9AM - 5PM Pam/[facility], Wednesday-Wednesday) Documents on File Type Date Recorded Patient Instructor Decorating Expl anation Healthcare Proxy 01/06/2024 1:07 PM * Full Code (Latest Code Status on File) Date Activated Date Inactivated Comments 02/14/2024 4:55 PM Question Answer Comments Code Status Confirmed With: Patient * Full Code Date Activated Date Inactivated Comments 01/24/2024 5:01 PM 02/14/2024 4:55 PM Question Answer Comments Code Status Confirmed With: Patient * Full Code Date Activated Date Inactivated Comments 01/03/2024 6:57 PM 01/24/2024 5:01 PM Question Answer Comments Code Status Confirmed With: Patient * Full Code Date Activated Date Inactivated Comments 12/14/2023 6:37 PM 01/03/2024 6:57 PM Question Answer Comments Code Status Confirmed With: Patient Code Discussion Comments: Emely Quiroga PA-C confirmed with pt, HCP/ (Ryan) present for conversation * Full Code Date Activated Date Inactivated Comments 11/11/2023 6:57 PM 12/14/2023 6:37 PM Question Answer Comments Code Status Confirmed With: Patient Healthcare Agents on File Name Relationship Healthcare Agent Relationship Communication Ryan Brooks Spouse .Primary Health Care Agent (Proxy form on file) [email or web address] Care Teams Patent Drafter Relationship Specialty Start Date End Date Maksim Sidhu MD [address] [place] [address] PCP - General Internal Medicine 10/25/23 Addie Cao MD [address] [place] [address] Referring Physician Gynecologic Oncology 10/25/23 Cordelia Hoyt RN [address] [place] [address] [email or web address] .[place].[facility] Primary Infusion Nurse 01/11/24 Gris Fritz RN [address] [place] [address] [email or web address] Associate Infusion Nurse 01/11/24 Cate Grady RN [address] [place] [address] [email or web address] Associate Infusion Nurse 01/11/24 Additional Source Comments The information contained in this document represents components of the legal health record. It is not the complete legal health record.[facility]
--- OUTSIDE RECORDS SUMMARY | 2024-12-19 18:27 | XMS_ITS ---
Author Organization [facility] Address 399 [employer] [address] [address] Phone Care Team Providers Care Machine Attendant Name Role Phone Maksim Sidhu MD Primary Care Provider [phone] Addie Cao MD Unavailable [phone] Cordelia Hoyt RN Unavailable GEO [email or web address] Gris Fritz RN Unavailable Bruce@ [facility].[place].[facility] Cate Grady RN Unavailable Rafael@ [email or web address].[facility] Active Problems Problem Noted Date Diagnosed Date [...] spent on 02/14/2024 for this visit in hpop-sk-apib and non rpkn-on-lujo time reviewing, obtaining, and documenting clinical information, [...] AM EST): For historical reference. 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 Treated with mastectomy, RSLN biopsy with immediate reconstruction. Follows with [facility] with Dr. Valles. Assessment & Plan (02/14/2024 5:49 PM EST): For historical reference. 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 Treated with mastectomy, RSLN biopsy with immediate reconstrution- follows with [facility] with Dr. Rodriguez Assessment & Plan (01/24/2024 2:09 PM EDT): For historical reference. 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 Treated with mastectomy, RSLN biopsy with immediate reconstrution- follows with [facility] with Dr. Rodriguez Assessment & Plan (01/03/2024 2:37 PM EDT): For historical reference. 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 Treated with mastectomy, RSLN biopsy with immediate reconstrution- follows with [facility] with Dr. Rodriguez Assessment & Plan (12/14/2023 7:09 AM EDT): For historical reference. 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 Treated with mastectomy, RSLN biopsy with immediate reconstrution- follows with [facility] with Dr. Rodriguez Current Treatment and Therapy Plans ACCESS AND FLUSH??(DFCI)* Plan Start Date:12/14/2023 Plan Provider:Violeta Iyer MD Linked Problems Malignant neoplasm of ovary, unspecified laterality Treatment Medications No medications scheduled. HYDRATION & SUPPORTIVE CARE* Plan Start Date:12/18/2023 Plan Provider:Violeta Iyer MD Linked Problems Malignant neoplasm of ovary, unspecified laterality Treatment Medications No medications scheduled. Past Treatment and Therapy Plans TREATMENT PLAN Plan Name Start Date Discontinue Date Treatment Medications Discontinue Reason Plan Provider Cycles CARBOPLATIN AUC 6/PACLITAXEL 175mg/m2 EVERY 3 WEEKS 024 08/02/2024 CARBOplatin (PARAPLATIN)CARBO platin (PARAPLATIN) IVPB (by AUC) 270 mLPACLitaxel (TAXOL)PACLitaxel (TAXOL) IVPB in 500 mL (Doses GREATER than 199 mg) a. Therapy Complete Violeta Iyer MD 2 of 6 cycles started IV PACLITAXEL-24 HOUR/INTRA-PER ITONEAL PACLITAXEL/CIS PLATIN 12/14/19 24 02/28/2024 CISplatin (PLATINOL)CISplat in (PLATINOL) intraperitoneal dwell (1000 mL)PACLitaxel (TAXOL)PACLitaxel (TAXOL) intraperitoneal solution 250 mL (Doses >85 mg to 199 mg)PACLitaxel (TAXOL) IVPB in 250 mL (Doses >85 mg to 199 mg)PACLitaxel (TAXOL) IVPB in 500 mL (Doses GREATER than 199 mg) c. Not Tolerated Violeta Iyer MD 4 of 6 cycles started IV PACLITAXEL-24 HOUR/INTRA-PER ITONEAL PACLITAXEL/CIS PLATIN 12/15/19 24 12/14/2023 CISplatin (PLATINOL)PACLita xel (TAXOL) m. Entered in error Violeta Iyer MD Treatment not started
--- OUTSIDE RECORDS SUMMARY | 2024-12-19 18:27 | XMS_ITS | Encounter Summary ---
Author Organization [facility] Address [address] [employer] [facility] [address] [place] [address] Phone Care Team Providers Care Window Installer Name Role Phone Maksim Sidhu MD Primary Care Provider [phone] Addie Cao MD Unavailable [phone] Cordelia Hoyt RN Unavailable GEO [email or web address].[facility] Gris Fritz RN Unavailable Bruce@ [facility].[place].[facility] Cate Grady RN Unavailable Rafael@ [facility].[facility] Encounter Details Date Type Department Care Team (Late st Contact Info) Description 04/05/2024 Procedure Pass [facility] [place] [place] [address] [facility] 3rd [place] [address] Social History Tobacco Use Types [...] 9:50 AM EST [facility] [place] [address] Violeta Iyer MD [address] [place] [address] [email or web address] 02/07/2025 11:00 AM EST Office Visit [facility], [facility], [facility] at [address] [address] Breanne Henderson CNP 450 [facility] [address] [place] [address] [email or web address] 05/21/2025 7:30 AM EST Blood Draw Laboratory Services, [facility] at [address] [address] Cindy Negrete MD [address] [place] [address] [email or web address] 05/21/2025 8:30 AM EST Office Visit [facility], [facility], [facility] at [address] [address] Cindy Negrete MD [address] [place] [address] [email or web address] documented as of this encounter Visit Diagnoses Not on filedocumented in this encounter Care Teams Window Installer Relationship Specialty Start Date End Date Maksim Sidhu MD [address] [place] [address] PCP - General Internal Medicine 10/25/23 Addie Cao MD [address] [address] Referring Physician Gynecologic Oncology 10/25/23 Cordelia Hoyt RN [address] [place] [address] [email or web address] .[facility] Primary Infusion Nurse 01/11/24 Gris Fritz RN [address] [place] [address] [email or web address] Associate Infusion Nurse 01/11/24 Cate Grady RN [address] [place] [address] [email or web address] Associate Infusion Nurse 01/11/24 documented as of this encounter Additional Source Comments The information contained in this document represents components of the legal health record. It is not the complete legal health record.[facility]
--- OUTSIDE RECORDS SUMMARY | 2024-12-19 18:27 | XMS_ITS | Encounter Summary ---
Author Organization [facility] Address 399 [employer] [facility] [address] [place] [address] Phone Care Team Providers Care Medical Authorization Specialist Name Role Phone Maksim Sidhu MD Primary Care Provider [phone] Addie Cao MD Unavailable [phone] Cordelia Hoyt RN Unavailable GEO [email or web address] Gris Fritz RN Unavailable Bruce@ [facility] Cate Grady RN Unavailable Rafael@ [email or web address] Encounter Details Date Type Department Care Team (Late st Contact Info) Description 11/24/2023 Procedure Pass [facility] L2 PRU [address] [place] [address] Social History Tobacco Use Types Packs/Day Years [...] a working camera? Not on file Comments No Sex and Gender Information Value Date Recorded Sex Assigned at Not on file Legal Sex Female 7:03 PM EST Gender Identity Not on file Sexual Orientation Not on file documented as of this encounter Plan of Treatment Upcoming Encounters Date Type Department Care Team (Late st Contact Info) Description 02/07/2025 9:50 AM EST Blood Draw Laboratory Services, [facility] [place] [place] at [address] [address] Violeta Iyer MD [address] [place] [address] [email or web address]. [facility] 02/07/2025 11:00 AM EST Office Visit [facility] for [facility]cology, [facility], [facility] at [address] [address] Breanne Henderson CNP 450 [facility] [address] [place] [address] [email or web address] 05/21/2025 7:30 AM EST Blood Draw Laboratory Services, [facility] [place] [facility] [place] [address] [address] Cindy Negrete MD [address] [place] [address] [email or web address] 05/21/2025 8:30 AM EST Office Visit [facility], [facility] [place] [facility], [facility] at [address] [address] Cindy Negrete MD [address] [place], [place] [address] [address] [email or web address] documented as of this encounter Visit Diagnoses Not on filedocumented in this encounter Care Teams Medical Authorization Specialist Relationship Specialty Start Date End Date Maksim Sidhu MD [address] [place] [address] PCP - General Internal Medicine 10/25/23 Addie Cao MD [address] [place] [address] Referring Physician Gynecologic Oncology 10/25/23 Cordelia Hoyt RN [address] [place] [address] [email or web address] .[email or web address].[facility] Primary Infusion Nurse 01/11/24 Gris Fritz RN [address] [place] [address] [email or web address] Associate Infusion Nurse 01/11/24 Cate Grady RN [address] [place] [address] [email or web address] Associate Infusion Nurse 01/11/24 documented as of this encounter Additional Source Comments The information contained in this document represents components of the legal health record. It is not the complete legal health record.[facility]
--- OUTSIDE RECORDS SUMMARY | 2024-12-19 18:27 | XMS_ITS | Encounter Summary ---
Author Organization [facility] Address [address] [address] Phone Care Team Providers Care Ela Teacher Name Role Phone Maksim Sidhu MD Primary Care Provider [phone] Addie Cao MD Unavailable [phone] Cordelia Hoyt RN Unavailable GEO [email or web address].[email or web address].[email or web address] Gris Fritz RN Unavailable Bruce@ [facility].[place].[facility] Cate Grady RN Unavailable Rafael@ [email or web address].[facility] Encounter Details Date Type Department Care Team (Late st Contact Info) Description 11/03/2023 Ancillary Orders Outside Imaging Cindy Negrete MD [address] [place] [address] [email or web address] Social History Tobacco Use Types Packs/Day Years [...] 9:50 AM EST Blood Draw Laboratory Services, [facility] at [address] [address] Violeta Iyer MD [address] [place] [address] [email or web address]. [place].[facility] 02/07/2025 11:00 AM EST Office Visit [facility], [facility], [facility] at [address] [address] Breanne Henderson CNP [address] [place] [address] [address] [place] [address] [email or web address] 05/21/2025 7:30 AM EST Blood Draw Laboratory Services, [facility] at [address] [address] Cindy Negrete MD [address] [place] [address] [email or web address] 05/21/2025 8:30 AM EST Office Visit [facility], [facility] [place] [facility], [facility] at [address] [address] Cindy Negrete MD [address] [place] [address] @[facility] documented as of this encounter Results * XR Chest Outside (No Interpretation) (10/20/2023 12:00 AM EDT) Other N[facility]ative [facility] 2:40 PM EDT This study is for PACS storage only and not for interpretation. us Cindy Negrete MD IMG OUTSIDE IMAGING W/OUT IN TERPRETATION Final Result Performing Organization Address City/State/[facility] Co de Phone Number [facility] documented in this encounter Visit Diagnoses Not on filedocumented in this encounter Care Teams Ela Teacher Relationship Specialty Start Date End Date Maksim Sidhu MD [address] [place] [address] PCP - General Internal Medicine 10/25/23 Addie Cao MD [address] [address] Referring Physician Gynecologic Oncology 10/25/23 Cordelia Hoyt RN [address] [place] [address] [email or web address] .[facility] Primary Infusion Nurse 01/11/24 Gris Fritz RN [address] [place] [address] [email or web address] Associate Infusion Nurse 01/11/24 Cate Grady RN [address] [place] [address] [email or web address] Associate Infusion Nurse 01/11/24 documented as of this encounter Additional Source Comments The information contained in this document represents components of the legal health record. It is not the complete legal health record.[facility]
--- OUTSIDE RECORDS SUMMARY | 2024-12-19 18:27 | XMS_ITS | Encounter Summary ---
Author Organization [facility] Address 399 [facility] [address] [place] [address] Phone Care Team Providers Care Clock And Watch Hands Dipper Name Role Phone Maksim Sidhu MD Primary Care Provider [phone] Addie Cao MD Unavailable [phone] Cordelia Hoyt RN Unavailable GEO [email or web address] Gris Fritz RN Unavailable Bruce@ [facility].[place] Cate Grady RN Unavailable Rafael@ [facility].[place] Encounter Details Date Type Department Care Team (Late st Contact Info) Description 11/11/2023 Procedure Pass [facility] Periop [address] [place] [address] Social History Tobacco Use Types Packs/Day Years [...] your housing situation today? I have bill bradford 11/02/2023 How many times have you move [...] on file documented as of this encounter Functional Status * Calculated C-SSRS Risk Score (Lifetime/Recent) Answer Date of Assessment Author No Risk Indicated 11/11/2023 4:06 PM EDT Andree Madrid, RN * Rembert Suicide Severity Rating Scale (Screener/Recent Self-Report) Question Answer Date of Assessment Author 1. Wish to be (Past 1 Month) No 11/11/2023 4:06 PM EDT Andree Quan, RN 2. Non-Specific Active Suici ora Thoughts (Past 1 Month) No 11/11/2023 4:06 PM EDT Ronny Quan RN 6. Suicidal Behavior (Lifetime) No 4:06 PM EDT Andree Quan, RN documented as of this encounter Plan of Treatment Upcoming Encounters Date Type Department Care Team (Late st Contact Info) Description 02/07/2025 9:50 AM EST Blood Draw Laboratory Services, [facility] [place] [facility] [place] 300 [facility] 3rd [place] [address] Violeta Iyer MD [address] [facility] [place] [address] Luz@[email or web address] 02/07/2025 11:00 AM EST Office Visit [facility], [facility], [facility] at [address] [address] Breanne Henderson, STUDENT SERVICES ADVISOR [address] [place] [address] [email or web address] 05/21/2025 7:30 AM EST Blood Draw Laboratory Services, [facility] at [address] [address] Cindy Negrete MD [address] [place] [address] [email or web address] 05/21/2025 8:30 AM EST Office Visit [facility], [facility], [facility] at [address] [address] Cindy Negrete MD [address] [place] [address] @[facility] documented as of this encounter Visit Diagnoses Not on filedocumented in this encounter Care Teams Clock And Watch Hands Dipper Relationship Specialty Start Date End Date Maksim Sidhu MD [address] [place] [address] PCP - General Internal Medicine 10/25/23 Addie Cao MD [address] [place] [address] Referring Physician Gynecologic Oncology 10/25/23 Cordelia Hoyt RN [address] [place] [address] [email or web address] .[facility] Primary Infusion Nurse 01/11/24 Gris Fritz RN [address] [place] [address] [email or web address] Associate Infusion Nurse 01/11/24 Cate Grady RN [address] [place] [address] [email or web address] beds at the [facility] Associate Infusion Nurse 01/11/24 documented as of this encounter Additional Source Comments The information contained in this document represents components of the legal health record. It is not the complete legal health record.[facility]
--- OUTSIDE RECORDS SUMMARY | 2024-12-19 18:27 | XMS_ITS ---
Author Name [facility] Organization Unknown Care Team Organization Name Specialty Phone Email Start Date End Da te [facility] 11/15/2024 [facility] Maksim Sidhu Primary Care 02/03/2022 11/15/2023
== END 2024-12-19 16:18 | disposition home or self-care (01) ==
LOC: HO.HSM 15:48
PROVIDERS: PCP Internal Medicine; Visit Provider Psychiatry & Neurology Neurology
DX: G31.84 Mild cognitive impairment of uncertain or unknown etiology (principal)
CPT/HCPCS: 99214

== ENCOUNTER 2024-12-19 15:47 | Outpatient (REF) | payer MEDICARE, OTHER, SELFPAY ==
[2024-12-23 17:38] LABS: ABETA 42/40 Ratio 0.219 (> OR = 0.170); Alzeheimer's Interpretation Low Likelihood; Tau protein phosphorylated 217 0.07 pg/mL (< OR = 0.15)
== END 2024-12-19 15:48 | disposition home or self-care (01) ==
LOC: HO.LAB 15:47
PROVIDERS: PCP Internal Medicine; Visit Provider Psychiatry & Neurology Neurology
DX: G31.84 Mild cognitive impairment of uncertain or unknown etiology (principal)
CPT/HCPCS: 36415; 82233; 82234; 84393; 99212

== ENCOUNTER 2025-01-25 09:29 | Outpatient (AMB) | payer MEDICARE, OTHER, SELFPAY ==
--- NOTE | 2025-01-25 09:30 | MHC.OFFVIS ---
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 For a while, she has noted that she was forgetting names, like names of actors she knew. For a year, she has developed another problem. If she was parking her car in a parking lot where other cars were already parked, she did not have much problem, but if there was no car in the lot, she had difficulty putting the car in the right spot and she was going back and forth before it was properly parked. She was most concerned about her difficulty with retrieving names. She was feeling somewhat better but baseline symptoms were still present. Physical Exam Neuro Other: Mental Status: Alert and oriented to person, place, and time. Normal attention. Normal spontaneous speech, fluency, and comprehension. Cranial Nerves: CN II: Visual steinberg full to confrontation, visual acuity intact. CN III, IV, : Pupils equal, round, reactive to light and accommodation. Extraocular movements are normal. CN V: Facial sensation is normal. CN VII: Facial movements symmetrical. CN VIII: Hearing intact to bedside conversation is normal. CN IX, X: Palate elevates symmetrically. CN XI: Shoulder shrug and head turn symmetrical. CN XII: Tongue midline without atrophy or fasciculations. Extrapyramidal: Full facial expressions and blinking. No rigidity. Movements are appropriate with no tremor or abnormality. Speech: Normal; no dysarthria or tremor. Assessment & Plan Assessment & Plan (1) MCI (mild cognitive impairment): Comment: Abeta 42/40 and Tau test at [facility] in 2024: Low likelihood of AD MRI brain WO at [place] in August 2024: Mild diff atrophy Labs at [facility] in 2024: B12 340, TSH 0.53 Code(s): G31.84 - Mild cognitive impairment of uncertain or unknown etiology Category: Medical Plan 69 years old woman with family history of dementia has mild cognitive impairment of amnestic type. Her serum test for amyloid plaquing was negative and PET scan was not performed. She was reassured and educated. I discussed with her common sense measures to improve her cognitive abilities or avoid actions and activities that could make it worse. A formal link was also provided for further education. Follow-up at this time would be on as needed basis. Coding Level of Care Code Est Pt Level 5 (88084) Diagnoses MCI (mild cognitive impairment) G31.84
--- OUTSIDE RECORDS SUMMARY | 2025-01-25 10:56 | XMS_ITS | Encounter Summary ---
Author Organization [facility] Address [address] [employer] [facility] [address] [place] [address] Phone Care Team Providers Care Cdl Instructor Name Role Phone Maksim Sidhu MD Primary Care Provider [phone] Addie Cao MD Unavailable Cordelia Hoyt RN Unavailable GEO [email or web address] Gris Fritz RN Unavailable Bruce@ [email or web address] Cate Grady RN Unavailable Rafael@ [email or web address] Encounter Details Date Type Department Care Team (Late st Contact Info) Description 11/24/2023 Procedure Pass [facility] L2 PRU [address] [place] [address] Social History Tobacco Use Types Packs/Day Years [...] 9:50 AM EST Blood Draw Laboratory Services, [facility] [place] at [address] [address] Violeta Iyer MD [address] [place] [address] [email or web address] 02/07/2025 11:00 AM EST Office Visit [facility], [facility], [facility] at [address] [address] Breanne Henderson CNP 450 [facility] [address] [place] [address] [email or web address] 05/21/2025 7:30 AM EST Blood Draw Laboratory Services, [facility] [place] at [place] [address] [address] Cindy Negrete MD [address] [place] [address] [email or web address] 05/21/2025 8:30 AM EST Office Visit [facility], [facility] [place] [facility], [facility] at [address] [address] Cindy Negrete MD [address] [place], [place] [address] [address] [email or web address] documented as of this encounter Visit Diagnoses Not on filedocumented in this encounter Care Teams Cdl Instructor Relationship Specialty Start Date End Date Maksim Sidhu MD [address] [place] [address] PCP - General Internal Medicine 10/25/23 Addie Cao MD [address] [place] [address] Referring Physician Gynecologic Oncology 10/25/23 Cordelia Hoyt RN [address] [place] [address] [email or web address] Primary Infusion Nurse 01/11/24 Gris Fritz RN [address] [place] [address] [email or web address] Associate Infusion Nurse 01/11/24 Cate Grady RN [address] [place] [address] [email or web address] Associate Infusion Nurse 01/11/24 documented as of this encounter Additional Source Comments The information contained in this document represents components of the legal health record. It is not the complete legal health record.[facility]
--- OUTSIDE RECORDS SUMMARY | 2025-01-25 10:56 | XMS_ITS | Clinical Summary ---
Author Organization [address] [facility] Address [address] [place] [phone] Phone Care Team Providers Care Pantograph Machine Set Up Operator Name Role Phone Stephania Corona MD Primary Care Provider [phone] Allergies Active Allergy Reactions Criticality Noted Date [...] AM EDT Office Visit Walk-In Clinic - [address] [address] Arie Ellis PA Impacted cerumen of both ears (Primary Dx) from Last 3 Months Immunizations Immunization Administration Dates Next Due HiB PRP-T conjugate (Acthib, Hiberix) 6wks and o lder 11/14/2023 Influenza Quadravalent, MDCK , 0.5ml, preservative free (Flucelvax) 6mo and older 12/08/2022 Influenza trivalent, 0.5mL (Fluad) 65yo and olde r 01/07/2022 Influenza trivalent, 0.5mL ( Fluzone High-dose) 65yo and older 12/10/2023,01/07/2022 Influenza trivalent, with pr eservative (Fluzone; Afluria) 6mo and older 12/18/2024 Meningococcal B, Recombinant (Bexsero) 16yo to less [...] reconstruction of R breast by Dr. Sinha, Blu breast augmentation w/ silicone gel implants bilaterally. OTHER SURGICAL HISTORY 06/23/2018 Left PROCEDURE: [place] ENDOVEN ABLTJ INCMPTNT VEIN XTR LASER 2ND+ [...] care for your loved ones. For example, children's court magistrate or elderly care for an older adult? [...] Date Recorded What is your living situation? Unrecognized valu e 07/25/2024 Comments No Sex and Gender Information [...] AM EST Office Visit Internal Medicine - [facility] [address] [facility] [place] [address] Stephania Corona MD [address] [facility] [place] 05/01/2025 8:50 AM EST Office Visit [facility] [address] Mcneal [address] [place] [address] Daneil Barber MD [address] [place] [address] Dr Bynum [address] [place] [address] Health Maintenance Due Date Last Done Comments Breast Cancer Screening 1955 Osteoporosis Screening (Bone Density Screening) 09/20/2024 09/21/2023, 09/21/2023, 08/28/2021 COVID-19 Vaccine ( season) 2024 08/04/2021, 01/24/2021, 06/28/2020, Additional history exists Meningococcal B Vaccine (3 of 4 - Increased Risk Bexsero 3-dose series) 01/11/2025 01/12/2024, 11/13/2023 Colorectal Cancer Screening: Colonoscopy 07/31/2025 07/31/2020 Cervical [...] Completed 11/14/2023 Depression Screening Completed 10/10/2024, 08/18/19 Influenza Vaccine Completed 12/18/2024, , 12/08/2022, Additional history exists HPV Vaccines Aged Out [...] Procedure Name Priority Date/Time Associated Diagnosis Comments EXTERNAL CLINICAL LAB 12/25/2024 ANNUAL BMP BLOOD TEST Routine 12/21/2023 [facility] DEXA AXIAL SKELETON Routine 09/21/2023 8:58 AM EDT Encounter for screening for osteoporosis LIPID PANEL Routine 09/10/2023 DEPRESSION SCREENING Routine 08/18/2023 FALLS RISK ASSESSMENT Routine 08/18/2023 PAP SMEAR Routine 03/13/2022 HEPATITIS C SCREENING Routine 04/30/2021 HM COLONOSCOPY Routine 07/31/2020 from Last 3 Months or Most Recently Relevant to Health Maintenance Results * External clinical lab (12/25/2024) us Provider [facility] LAB BLOOD ORDERABLES Fin al Result * [facility] DEXA AXIAL SKELETON (09/21/2023 8:58 AM EDT) Anatomical Region Laterality Modality Mammography 09/21/2023 8:12 AM EDT Narrative 09/21/2023 8:58 AM EDT [facility] Diagnostic Imaging Department [address] [place] [address] Patient: GABI BROOKS /Age/Sex: 1955 - 67 - F Unit#: [id number] [facility] Ordering Physician: MAKSIM SIDHU MD [facility] Dexa Axial Skeleton - 09/21/23848 Report Status:Signed History: Low estrogen state due to menopause. Parent hip fracture. Takes alendronate. Comparison: No comparison imaging at this institution. Findings: Bone densitometry is performed utilizing dual energy x-ray absorptiometry (DXA) in the O[facility] unit. The lumbar spine and proximal femora [...] 16.5 percent Hip 2.7 percent. IMPRESSION: Osteopenia. [id number] Dictating Physician: FELICITA LEON MD Electronically Signed by: FELICITA LEON MD Dic Date/Time: 09/21/23856 Sign date/Time: 09/21/23857 Procedure Note Felicita Leon MD - 01/12/2024 [facility] Diagnostic Imaging Department [address] [place] [address] Patient: GABI BROOKS /Age/Sex: 1955 - 67 - F Unit#: [id number] [facility]Status[facility] Mnemonic/Ordering Site: [facility] Ordering Physician: MAKSIM SIDHU MD [facility] Dexa Axial Skeleton - 09/21/23848 Report Status:Signed History: Low estrogen state due to menopause. Parent hip fracture. Takes alendronate. Comparison: No comparison imaging at this institution. Findings: Bone densitometry is performed utilizing dual energy x-ray absorptiometry(DXA) in the O[facility] unit. The lumbar spine and proximal femora [...] 16.5 percent Hip 2.7 percent. IMPRESSION: Osteopenia. [id number] Dictating Physician: FELICITA LEON MD Electronically Signed by: FELICITA LEON MD Dic Date/Time: 09/21/23 0857 Sign date/Time: 09/21/23 0858 Result [facility] Maksim Sidhu MD IMG BI PROCEDURES Final R esult * Lipid panel (09/10/2023) [facility] LDL/HDL Ratio 2 0 - 4 Triglycerides 82 0 - 150 mg/dL Cholesterol 181 0 - 200 mg/dL HDL 78 >=40 mg/dL LDL Cholesterol 87 0 - 100 mg/dL Blood Venous blood specimen / Unknown Result [facility] LAB BLOOD ORDERABLES Ree l Result * Falls Risk Assessment (08/18/2023) [facility] Falls Risk Assessment Abstracted Result [facility] HEALTH MAINTENANCE Final Result * Depression Screening (08/18/2023) [facility] Depression Screening Abstracted Result [facility] HEALTH MAINTENANCE Final Result * Pap Smear (03/13/2022) [facility] Pap smear Negative, Abstracted Result [facility] HEALTH MAINTENANCE Final Result * Hepatitis C Screening (04/30/2021) [facility] Hepatitis C Screening Abstracted Result [facility] HEALTH MAINTENANCE Final Result * Colonoscopy (07/31/2020) [facility] Colonoscopy No interpretation , Abstracted Comment:Diverticulosis in si gmoid colon, internal hemorrhoids, otherwise normal- no speciments taken. Repeat 5 yrs- family hx. Anatomical Region Laterality Modality Other us Historical Provider HEALTH MAINTENANCE Final Result from Last 3 Months or Most Recently Relevant to Health Maintenance Insurance MEDICARE [facility] [address] [id number] Care Teams Pantograph Machine Set Up Operator Relationship Specialty Start Date End Date Stephania Corona MD [address] [facility] [place] [address] PCP - General Internal Medicine 10/27/24
--- OUTSIDE RECORDS SUMMARY | 2025-01-25 10:56 | XMS_ITS | Encounter Summary ---
Author Organization [facility] Address [address] [facility] [address] [place] [address] Phone Care Team Providers Care Hydraulic Press In Operator Name Role Phone Maksim Sidhu MD Primary Care Provider [phone] Addie Cao MD Unavailable [phone] Cordelia Hoyt RN Unavailable GEO [email or web address] Gris Fritz RN Unavailable Bruce@ [email or web address] Cate Grady RN Unavailable Rafael@ [email or web address] Encounter Details Date Type Department Care Team (Late st Contact Info) Description 05/05/2024 Procedure Pass [facility] [place] [address] [facility] [address] [place] [address] Social History Tobacco Use Types [...] 9:50 AM EST [facility] [place] [facility] [place] [address] Violeta Iyer MD [address] [place] [address] [email or web address] 02/07/2025 11:00 AM EST Office Visit [facility], [facility], [facility] at [address] [address] Breanne Henderson CNP 450 [facility] [address] [place] [address] [email or web address] 05/21/2025 7:30 AM EST Blood Draw Laboratory Services, [facility] at [address] [address] Cindy Negrete MD [address] [place] [address] @[facility] 05/21/2025 8:30 AM EST Office Visit [facility], [facility], [facility] at [address] [address] Cindy Negrete MD [address] [place] [address] [email or web address] documented as of this encounter Visit Diagnoses Not on filedocumented in this encounter Care Teams Hydraulic Press In Operator Relationship Specialty Start Date End Date Maksim Sidhu MD [address] [place] [address] PCP - General Internal Medicine 10/25/23 Addie Cao MD [address] [address] Referring Physician Gynecologic Oncology 10/25/23 Cordelia Hoyt RN [address] [place] [address] [email or web address] .[facility] Primary Infusion Nurse 01/11/24 Gris Fritz RN [address] [place] [address] [email or web address] Associate Infusion Nurse 01/11/24 Cate Grady RN [address] [place] [address] [email or web address] Associate Infusion Nurse 01/11/24 documented as of this encounter Additional Source Comments The information contained in this document represents components of the legal health record. It is not the complete legal health record.[facility]
--- OUTSIDE RECORDS SUMMARY | 2025-01-25 10:56 | XMS_ITS | Encounter Summary ---
Author Organization [facility] Address [address] [address] Phone Care Team Providers Care Metal Numerical Control Programmer Name Role Phone Maksim Sidhu MD Primary Care Provider [phone] Addie Cao MD Unavailable [phone] Cordelia Hoyt RN Unavailable GEO [email or web address] Gris Fritz RN Unavailable Bruce@ [email or web address] Cate Grady RN Unavailable Rafael@ [email or web address] Encounter Details Date Type Department Care Team (Late st Contact Info) Description 11/03/2023 Ancillary Orders Outside Imaging Cindy Negrete MD [address] [place] [address] [email or web address] Social History Tobacco Use Types Packs/Day [...] 9:50 AM EST Blood Draw Laboratory Services, [facility] at [address] [address] Violeta Iyer MD [address] [place] [address] [email or web address] 02/07/2025 11:00 AM EST Office Visit [facility], [facility], [facility] at [address] [address] Breanne Henderson CNP [address] [place] [address] [place] [address] [place] [address] [email or web address] 05/21/2025 7:30 AM EST Blood Draw Laboratory Services, [facility] at [address] [address] Cindy Negrete MD [address] [place] [address] [email or web address] 05/21/2025 8:30 AM EST Office Visit [facility], Jennifer [facility]in [place] [facility], [facility] at [address] [address] Cindy Negrete MD [address] [place] [address] [email or web address] documented as of this encounter Results * XR Chest Outside (No Interpretation) (10/20/2023 12:00 AM EDT) Other Narrative [facility] - 11/03/2023 2:40 PM EDT This study is for PACS storage only and not for interpretation. us Cindy Negrete MD IMG OUTSIDE IMAGING W/OUT IN TERPRETATION Final Result Performing Organization Address City/State/[facility] Co de Phone Number PERC[facility] documented in this encounter Visit Diagnoses Not on filedocumented in this encounter Care Teams Metal Numerical Control Programmer Relationship Specialty Start Date End Date Maksim Sidhu MD [address] [place] [address] PCP - General Internal Medicine 10/25/23 Addie Cao MD [address] [address] Referring Physician Gynecologic Oncology 10/25/23 Cordelia Hoyt RN [address] [place] [address] [email or web address] .[facility] Primary Infusion Nurse 01/11/24 Gris Fritz RN [address] [place] [address] [email or web address] Associate Infusion Nurse 01/11/24 Cate Grady RN [address] [place] [phone] [email or web address] Associate Infusion Nurse 01/11/24 documented as of this encounter Additional Source Comments The information contained in this document represents components of the legal health record. It is not the complete legal health record.[facility]
--- OUTSIDE RECORDS SUMMARY | 2025-01-25 10:56 | XMS_ITS | Encounter Summary ---
Author Organization [facility] Address [address] [address] Phone Care Team Providers Care Business Performance Specialist Name Role Phone Maksim Sidhu MD Primary Care Provider [phone] Addie Cao MD Unavailable Cordelia Hoyt RN Unavailable GEO [email or web address] Gris Fritz RN Unavailable Bruce@ [email or web address].[facility] Cate Grady RN Unavailable Rafael@ [email or web address] Encounter Details Date Type Department Care Team (Late st Contact Info) Description 11/03/2023 Ancillary Orders Outside Imaging Cindy Negrete MD [address] [place] [phone] @[facility] Social History Tobacco Use Types Packs/Day [...] 9:50 AM EST Blood Draw Laboratory Services, [facility] at [address] [address] Violeta Iyer MD [address] [place] [address] [email or web address] 02/07/2025 11:00 AM EST Office Visit [facility], [facility], [facility] at [address] [address] Breanne Henderson CNP [address] [place] [address] [place] [address] [email or web address] 05/21/2025 7:30 AM EST Blood Draw Laboratory Services, [facility] at [address] [address] Cindy Negrete MD [address] [place] [address] [email or web address] 05/21/2025 8:30 AM EST Office Visit [facility], Jennifer Larkin [place] [facility], [facility] at [address] [address] Cindy Negrete MD [address] [place] [phone] @[email or web address] documented as of this encounter Results * NM PET Whole Body Outside (No Interpretation) (11/02/2023 12:00 AM EDT) Other Narrative [facility] - 11/03/2023 2:45 PM EDT This study is for PACS storage only and not for interpretation. us Cindy Negrete MD IMG OUTSIDE IMAGING W/OUT IN TERPRETATION Final Result Performing Organization Address City/State/[facility] Co de Phone Number ERIC_[facility] documented in this encounter Visit Diagnoses Not on filedocumented in this encounter Care Teams Business Performance Specialist Relationship Specialty Start Date End Date Maksim Sidhu MD [address] [place] [address] PCP - General Internal Medicine 10/25/23 Addie Cao MD [address] [address] Referring Physician Gynecologic Oncology 10/25/23 Cordelia Hoyt RN [address] [place] [address] [email or web address] Primary Infusion Nurse 01/11/24 Gris Fritz RN [address] [place] [address] [email or web address] Associate Infusion Nurse 01/11/24 Cate Grady RN [address] [place] [phone] [email or web address] Associate Infusion Nurse 01/11/24 documented as of this encounter Additional Source Comments The information contained in this document represents components of the legal health record. It is not the complete legal health record.[facility]
--- OUTSIDE RECORDS SUMMARY | 2025-01-25 10:56 | XMS_ITS ---
Author Organization [facility] Address [address] [address] Phone Care Team Providers Care Raised Printer Name Role Phone Maksim Sidhu MD Primary Care Provider [phone] Addie Cao MD Unavailable [phone] Cordelia Hoyt RN Unavailable GEO [email or web address] Gris Fritz RN Unavailable Bruce@ [facility].[place].[facility] Cate Grady RN Unavailable Rafael@ 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 Follows with [facility] with Dr. Valles. Assessment & Plan (02/14/2024 5:49 PM EST): For historical reference. 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 Treated with mastectomy, RSLN biopsy with immediate reconstrution- follows with [facility] with Dr. Rodriguez Assessment & Plan (01/24/2024 2:09 PM EDT): For historical reference. 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 Treated with mastectomy, RSLN biopsy with immediate reconstrution- follows with [facility] with Dr. Rodriguez Assessment & Plan (01/03/2024 2:37 PM EDT): For historical reference. 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 Treated with mastectomy, RSLN biopsy with immediate reconstrution- follows with [facility] with Dr. Rodriguez Assessment & Plan (12/14/2023 7:09 AM EDT): For historical reference. 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 Treated with mastectomy, RSLN biopsy with immediate reconstrution- follows with [facility] with Dr. Rodriguez Current Treatment and [...]
--- OUTSIDE RECORDS SUMMARY | 2025-01-25 10:56 | XMS_ITS | Encounter Summary ---
Author Organization [facility] Address [address] [facility] [address] [place] [address] Phone Care Team Providers Care Dance Coach Name Role Phone Maksim Sidhu MD Primary Care Provider [phone] Addie Cao MD Unavailable [phone] Cordelia Hoyt RN Unavailable GEO [email or web address] Gris Fritz RN Unavailable Bruce@ [facility].[place].[facility] Cate Grady RN Unavailable Rafael@ [facility] Encounter Details Date Type Department Care Team (Late st Contact Info) Description 04/05/2024 Procedure Pass [facility] [place] 300 [facility] 3rd [place] [address] Social History Tobacco Use Types [...] 9:50 AM EST Blood [facility], [facility] [place] [facility] [place] [address] Violeta Iyer MD 450 [place] [address] Luz@[email or web address] 02/07/2025 11:00 AM EST Office Visit [facility], [facility], [facility] at [address] [address] Breanne Henderson CNP 450 [facility] [address] [place] [address] [email or web address] 05/21/2025 7:30 AM EST Blood Draw Laboratory Services, [facility] at [address] [address] Cindy Negrete MD [address] [place] [address] [email or web address] 05/21/2025 8:30 AM EST Office Visit [facility], [facility], [facility] at [address] [address] Cindy Negrete MD [address] [place] [address] [email or web address] documented as of this encounter Visit Diagnoses Not on filedocumented in this encounter Care Teams Dance Coach Relationship Specialty Start Date End Date Maksim Sidhu MD [address] [place] [address] PCP - General Internal Medicine 10/25/23 Addie Cao MD [address] [address] Referring Physician Gynecologic Oncology 10/25/23 Cordelia Hoyt RN [address] [place] [address] ANTONI@[email or web address] .[facility] Primary Infusion Nurse 01/11/24 Gris Fritz RN [address] [place] [address] Bruce@[email or web address] Associate Infusion Nurse 01/11/24 Cate Grady RN [address] [place] [address] [email or web address] Associate Infusion Nurse 01/11/24 documented as of this encounter Additional Source Comments The information contained in this document represents components of the legal health record. It is not the complete legal health record.[facility]
--- OUTSIDE RECORDS SUMMARY | 2025-01-25 10:56 | XMS_ITS | Encounter Summary ---
Author Organization [facility] Address [address] [facility] [address] [place] [address] Phone Care Team Providers Care Mix House Operator Name Role Phone Maksim Sidhu MD Primary Care Provider [phone] Addie Cao MD Unavailable [phone] Cordelia Hoyt RN Unavailable GEO [email or web address] Gris Fritz RN Unavailable Bruce@ [facility].[place].[facility] Cate Grady RN Unavailable Rafael@ [facility] Encounter Details Date Type Department Care Team (Late st Contact Info) Description 11/11/2023 Procedure Pass [facility] Periop [address] [place] [address] Social History Tobacco Use Types Packs/Day Years [...] 4:06 PM EDT Andree Madrid, RN * [place] Suicide Severity Rating Scale (Screener/Recent Self-Report) Question [...] 9:50 AM EST Blood Draw Laboratory Services, [facility] [place] [facility] [place] 300 [facility] 3rd [place] [address] Violeta Iyer MD 450 [facility] [place] [address] Luz@[facility] 02/07/2025 11:00 AM EST Office Visit Center for Gynecologic [facility]cology, [facility], [facility] at [address] [address] Breanne Henderson, OPTICAL GOODS DRILL OPERATOR [address] [place] [address] [email or web address] 05/21/2025 7:30 AM EST Blood Draw Laboratory Services, [facility] at [address] [address] Cindy Negrete MD [address] [place] [address] @[facility] 05/21/2025 8:30 AM EST Office Visit [facility], [facility], [facility] at [address] [address] Cindy Negrete MD [address] [place] [address] [email or web address] documented as of this encounter Visit Diagnoses Not on filedocumented in this encounter Care Teams Mix House Operator Relationship Specialty Start Date End Date Maksim Sidhu MD [address] [place] [address] PCP - General Internal Medicine 10/25/23 Addie Cao MD [address] [place] [address] Referring Physician Gynecologic Oncology 10/25/23 Cordelia Hoyt RN [address] [place] [address] ANTONI@[facility] .[facility] Primary Infusion Nurse 01/11/24 Gris Fritz RN [address] [place] [address] Bruce@[email or web address] Associate Infusion Nurse 01/11/24 Cate Grady RN [address] [place] [address] [email or web address]@[facility] Associate Infusion Nurse 01/11/24 documented as of this encounter Additional Source Comments The information contained in this document represents components of the legal health record. It is not the complete legal health record.[facility]
--- OUTSIDE RECORDS SUMMARY | 2025-01-25 10:56 | XMS_ITS | Encounter Summary ---
Author Organization [facility] Address 399 [facility] [address] [place] [address] Phone Care Team Providers Care Textile Pin Worker Name Role Phone Maksim Sidhu MD Primary Care Provider [phone] Addie Cao MD Unavailable [phone] Cordelia Hoyt RN Unavailable GEO KIMBALL@[email or web address].[email or web address].[facility] Gris Fritz RN Unavailable Bruce@ [facility].[place].[facility] Cate Grady RN Unavailable Rafael@ [facility].[facility] Encounter Details Date Type Department Care Team (Late st Contact Info) Description 05/11/2024 Procedure Pass [facility] Periop [address] [place] [address] Social History Tobacco Use Types Packs/Day Years [...] 9:50 AM EST Blood Draw Laboratory Services, [facility] [place] [facility] [place] [address] [address] Violeta Iyer MD 450 [place] [address] Luz@[facility] 02/07/2025 11:00 AM EST Office Visit [facility] for Gynec[facility], [facility], [facility] at [address] [address] Breanne Henderson CNP 450 [facility] [address] [place] [address] [email or web address] 05/21/2025 7:30 AM EST Blood Draw Laboratory Services, [facility] at [address] [address] Cindy Negrete MD [address] [place] [address] [email or web address] 05/21/2025 8:30 AM EST Office Visit [facility], [facility], [facility] at [address] [address] Cindy Negrete MD [address] [place] [address] [email or web address] documented as of this encounter Visit Diagnoses Not on filedocumented in this encounter Care Teams Textile Pin Worker Relationship Specialty Start Date End Date Maksim Sidhu MD [address] [place] [address] PCP - General Internal Medicine 10/25/23 Addie Cao MD [address] [place] [address] Referring Physician Gynecologic Oncology 10/25/23 Cordelia Hoyt RN [address] [place] [address] ANTONI@[facility] .[facility] Primary Infusion Nurse 01/11/24 Gris Fritz RN [address] [place] [address] Bruce@[email or web address] Associate Infusion Nurse 01/11/24 aCte Grady RN [address] [place] [address] Rafael@[email or web address] Associate Infusion Nurse 01/11/24 documented as of this encounter Additional Source Comments The information contained in this document represents components of the legal health record. It is not the complete legal health record.[facility]
--- OUTSIDE RECORDS SUMMARY | 2025-01-25 10:56 | XMS_ITS | Encounter Summary ---
Author Organization [facility] Address [address] [employer] [facility] [address] [place] [address] Phone Care Team Providers Care Drywall Contractor Name Role Phone Maksim Sidhu MD Primary Care Provider [phone] Addie Cao MD Unavailable [phone] Cordelia Hoyt RN Unavailable GEO KIMBALL@[facility].[email or web address].[facility] Gris Fritz RN Unavailable Bruce@ [facility].[place].[facility] Cate Grady RN Unavailable Rafael@ [facility].[place].[facility] Encounter Details Date Type Department Care Team (Late st Contact Info) Description 04/05/2024 Procedure Pass [facility] [place], [place] 300 [facility] 3rd [place] [address] Social History Tobacco Use Types [...] 9:50 AM EST Blood Draw [facility], [facility] [place] [facility] [place] [address] Violeta Iyer MD 450 [place] [address] Luz@[facility] 02/07/2025 11:00 AM EST Office Visit [facility] for Gy[facility], [facility], [facility] at [address] [address] Breanne Henderson CNP 450 [facility] [address] [place] [address] [email or web address] 05/21/2025 7:30 AM EST Blood Draw Laboratory Services, [facility] at [address] [address] Cindy Negrete MD [address] [place] [address] @[facility] 05/21/2025 8:30 AM EST Office Visit [facility], [facility], [facility] at [address] [address] Cindy Negrete MD [address] [place] [address] [email or web address] documented as of this encounter Visit Diagnoses Not on filedocumented in this encounter Care Teams Drywall Contractor Relationship Specialty Start Date End Date Maksim Sidhu MD [address] [place] [address] PCP - General Internal Medicine 10/25/23 Adide Cao MD [address] [address] Referring Physician Gynecologic Oncology 10/25/23 Cordelia Hoyt RN [address] [place] [address] ANTONI@[email or web address] Primary Infusion Nurse 01/11/24 Gris Fritz RN [address] [place] [address] [email or web address] Associate Infusion Nurse 01/11/24 Cate Grady RN [address] [place] [address] [email or web address] Associate Infusion Nurse 01/11/24 documented as of this encounter Additional Source Comments The information contained in this document represents components of the legal health record. It is not the complete legal health record.[facility]
--- OUTSIDE RECORDS SUMMARY | 2025-01-25 10:56 | XMS_ITS | Encounter Summary ---
Author Organization [facility] Address [address] [employer] [facility] [address] [place] [address] Phone Care Team Providers Care Valet Runner Name Role Phone Maksim Sidhu MD Primary Care Provider [phone] Addie Cao MD Unavailable [phone] Cordelia Hoyt RN Unavailable GEO [email or web address]@[email or web address].[place].[facility] Gris Fritz RN Unavailable Bruce@ [facility].[facility] Cate Grady RN Unavailable Rafeal@ [facility].[place].[facility] Encounter Details Date Type Department Care Team (Late st Contact Info) Description 05/05/2024 Procedure Pass [facility] [place] [address] [facility] 3rd [place] [address] Social History Tobacco Use Types [...] 9:50 AM EST Blood [facility], [facility] [place] [facility] [place] [address] Violeta Iyer MD 450 [place] [address] Luz@[facility] 02/07/2025 11:00 AM EST Office Visit [facility] for Gy[facility], [facility], [facility] at [address] [address] Breanne Henderson CNP 450 [facility] [address] [place] [address] [email or web address] 05/21/2025 7:30 AM EST Blood Draw Laboratory Services, [facility] at [address] [address] Cindy Negrete MD [address] [place] [address] @[facility] 05/21/2025 8:30 AM EST Office Visit [facility], [facility], [facility] at [address] [address] Cindy Negrete MD [address] [place] [address] @[facility] documented as of this encounter Visit Diagnoses Not on filedocumented in this encounter Care Teams Valet Runner Relationship Specialty Start Date End Date Maksim Sidhu MD [address] [place] [address] PCP - General Internal Medicine 10/25/23 Addie Cao MD [address] [address] Referring Physician Gynecologic Oncology 10/25/23 Cordelia Hoyt RN [address] [place] [address] ANTONI@[facility] .[facility] Primary Infusion Nurse 01/11/24 Gris Fritz RN [address] [place] [address] Bruce@[facility] Associate Infusion Nurse 01/11/24 Cate Grady RN [address] [place] [address] [email or web address] Associate Infusion Nurse 01/11/24 documented as of this encounter Additional Source Comments The information contained in this document represents components of the legal health record. It is not the complete legal health record.[facility]
--- OUTSIDE RECORDS SUMMARY | 2025-01-25 10:56 | XMS_ITS | Clinical Summary ---
Author Organization [facility] Address [address] [address] Phone Care Team Providers Care It Architecture Consultant Name Role Phone Maksim Sidhu MD Primary Care Provider [phone] Addie Cao MD Unavailable [phone] Cordelia Hoyt RN Unavailable [email or web address] Gris Fritz RN Unavailable [email or web address] Cate Grady RN Unavailable [email or web address] Allergies No known active allergies Medications alendronate (FOSAMAX) 70 MG tablet Take 1 tablet by mouth once a week. 09/08/2023 Active amLODIPine (NORVASC) 5 MG tablet Take 5 mg by mouth daily. 09/15/2023 Active atorvastatin (LIPITOR) 10 MG tablet Take 10 mg by mouth daily. 09/15/2023 Active acetaminophen (TYLENOL) 325 mg tablet Take 3 tablets (975 mg total) by mouth every 6 (six) hours as needed. 30 tablet 11/15/2023 Active cetirizine (ZYRTEC) 10 MG tablet Take 10 mg by mouth daily. Active fluticasone propionate (FLONASE) 50 mcg/actuation nasal spray 1 spray by Nasal route daily. Active acetaminophen (TYLENOL) 325 mg tablet Take 2 tablets (650 mg total) by mouth every 4 (four) hours as needed for pain (specific location in comments). 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 Treated with mastectomy, RSLN biopsy with immediate reconstruction. Follows with [facility] with Dr. Valles. Assessment & Plan (02/14/2024 5:49 PM EST): For historical reference. 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 Treated with mastectomy, RSLN biopsy with immediate reconstrution- follows with [facility] with Dr. Rodriguez Assessment & Plan (01/24/2024 2:09 PM EDT): For historical reference. 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 Treated with mastectomy, RSLN biopsy with immediate reconstrution- follows with [facility] with Dr. Rodriguez Assessment & Plan (01/03/2024 2:37 PM EDT): For historical reference. 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 Treated with mastectomy, RSLN biopsy with immediate reconstrution- follows with [facility] with Dr. Rodriguez Assessment & Plan (12/14/2023 7:09 AM EDT): For historical reference. 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 Treated with mastectomy, RSLN biopsy with immediate reconstrution- follows with [facility] with Dr. Rodriguez Encounters Date Type Department Care Team Description 11/20/2024 8:00 AM EDT Office Visit [facility], [facility] at [address] [address] Cindy Negrete MD Malignant neoplasm of both ovaries (Primary Dx) 11/20/2024 Orders Only [facility], [facility], [address] [address] Cindy Negrete MD Malignant neoplasm of both ovaries (Primary Dx) from Last 3 Months Immunizations [...] 9:50 AM EST Blood Draw Laboratory Services, [facility] at [address] [place] [address] Violeta Iyer MD [address] [place] [address] [email or web address] 02/07/2025 11:00 AM EST Office Visit [facility], [facility], [facility] at [address] [address] Breanne Henderson CNP [address] [facility] [place] [address] [place] [address] [email or web address] 05/21/2025 7:30 AM EST Blood Draw Laboratory Services, [facility] at [address] [address] Cindy Negrete MD [address] [place] [address] [email or web address] 05/21/2025 8:30 AM EST Office Visit [facility], [facility], [facility] at [address] [address] Cindy Negrete MD [address] [place] [phone] @[email or web address] Health Maintenance Due Date Last Done Comments DEPRESSION SCREENING 1966 HEPATITIS C SCREENING 1972 COLOGUARD 11/09/1999 COLONOSCOPY 11/09/1999 COLORECTAL CANCER SCREENING 11/09/1999 FIT TEST 11/09/1999 FOBT 11/09/1999 SIGMOIDOSCOPY 11/09/1999 VIRTUAL COLONOSCOPY 11/09/1999 OSTEOPOROSIS SCREENING INITIAL (ONE-TIME) 11/09/2019 MENINGOCOCCAL VACCINES (B) (3 of 5 - Increased Risk Bexsero 3-dose series) 05/15/2024 01/12/2024, 11/13/2023 INFLUENZA VACCINE (#1) 2024 , 12/08/2022, 01/07/2022 COVID-19 VACCINE ( season) 2024 08/04/2021, 01/24/2021, 06/28/2020, Additional [...] this topic Medical Devices Implanted Type Area Stock Cutter Device Identifier Shelf Expiration Date Model / Serial / Lot Port Infusion 6.6fr Power Injectable Dignity Mid-Sized Shaped Attachable - [id number] Implanted:Qty: 1 on 12/09/2023 by Gaby Corona PA-C at [facility] Right: Chest MEDCOMP 06/26/2028 [id number] / / [id number] Procedures Procedure Name Priority Date/Time Associated Diagnosis Comments CA-125 Routine 11/20/2024 7:19 AM EDT Malignant neoplasm of both ovaries HC BLOOD COUNT COMPLETE AUTO&AUTO DIFRNTL WBC Routine 11/20/2024 7:19 AM EDT Malignant neoplasm of both ovaries MAGNESIUM Routine 11/20/2024 7:19 AM EDT Malignant neoplasm of ovary, unspecified laterality COMPREHENSIVE METABOLIC PANEL Routine 11/20/2024 7:19 AM EDT Malignant neoplasm of ovary, unspecified laterality BI MRI BREAST OUTSIDE (NO INTERPRETATION) Routine 05/14/2023 12:00 AM EST from Last 3 Months or Most Recently Relevant to Health Maintenance Results * (ABNORMAL) Comprehensive metabolic panel (11/20/2024 7:19 AM EDT) SODIUM 142 136 - 145 mmol/L [facility] LIC# [id number] POTASSIUM 3.6 3.4 - 5.1 mmol/L [facility] LIC# [id number] CHLORIDE 105 98 - 107 mmol/L [facility]# [id number] CO2 25 22 - 31 mmol/L [facility]# [id number] BUN 19 6 - 23 mg/dL [facility]# [id number] CREATININE 0.78 0.50 - 1.20 mg/dL [facility]# [id number] GLUCOSE 101(H) 70 - 100 mg/dL [facility]# [id number] ALBUMIN 4.2 3.5 - 5.2 g/dL [facility]# [id number] TOTAL PROTEIN 6.9 6.4 - 8.3 g/dL [facility]# [id number] CALCIUM 9.1 8.8 - 10.7 mg/dL [facility]# [id number] ALKALINE PHOSPHATASE 56 35 - 104 U/L [facility]# [id number] TOTAL BILIRUBIN 1.1 0.2 - 1.2 mg/dL [facility]# [id number] AST 20 <33 U/L [facility]# [id number] ALT 7 <34 U/L [facility]# [id number] GLOBULIN 2.7 2.3 - 4.2 g/dL [facility] LIC# [id number] EGFR 82 >59 mL/min/1.7 3m2 [facility]# [id number] Comment:Estimated glomerular filtration rate calculated using the CKD-EPI refit equation. ANION GAP 12 7 - 17 mmol/L [facility] LIC# [id number] Blood 11/20/2024 7:19 AM EDT 11/20/2024 7:21 AM EDT us Violeta Iyer MD LAB BLOOD ORDERABLES Final Result [facility]# [id number] [address] * (ABNORMAL) CBC and differential (11/20/2024 7:19 AM EDT) [facility] WBC 5.90 4.00 - 10.00 K/uL [facility] LIC# [id number] RBC 3.80(L) 3.90 - 6.00 M/uL [facility] LIC# [id number] HGB 11.2(L) 11.5 - 16.4 g/dL [facility] LIC# [id number] HCT 33.0(L) 36.0 - 48.0 % [facility] LIC# [id number] PLT 305 150 - 450 K/uL [facility] LIC# [id number] MCV 86.8 80.0 - 100.0 fL [facility] LIC# [id number] MCH 29.5 27.0 - 32.0 pg [facility] LIC# [id number] MCHC 33.9 32.0 - 36.0 g/dL [facility] LIC# [id number] RDW 14.1 11.5 - 14.5 % [facility] LIC# [id number] MPV 10.1 8.4 - 12.0 fL [facility] LIC# [id number] NRBC 0.00 0.00 /100 WBCs [facility] LIC# [id number] ABSOLUTE NRBC 0.00 0 K/uL [facility] LIC# [id number] DIFF METHOD Auto [facility] LIC# [id number] NEUTS 48.2 48.0 - 76.0 % [facility] LIC# [id number] LYMPHS 35.4 18.0 - 41.0 % [facility] LIC# [id number] MONOS 12.4(H) 4.0 - 11.0 % [facility] LIC# [id number] EOS 2.7 0.0 - 5.0 % [facility] LIC# [id number] BASOS 1.0 0.00 - 1.50 % [facility] LIC# [id number] % IMMATURE GRANS 0.3 0.00 - 1.00 % [facility] LIC# [id number] ABSOLUTE NEUTS 2.84 1.92 - 7.60 K/uL [facility] LIC# [id number] ABSOLUTE LYMPHS 2.09 0.72 - 4.10 K/uL [facility] LIC# [id number] ABSOLUTE MONOS 0.73 0.16 - 1.10 K/uL [facility] LIC# [id number] ABSOLUTE EOS 0.16 0.00 - 0.50 K/uL [facility] LIC# [id number] ABSOLUTE BASOS 0.06 0.00 - 0.15 K/uL [facility] LIC# [id number] ABS IMMATURE GRANS 0.02 0.00 - 0.10 K/uL [facility] LIC# [id number] Blood 11/20/2024 7:19 AM EDT 11/20/2024 7:21 AM EDT us Cindy Negrete MD LAB BLOOD ORDERABLES Final R esult [facility]# [id number] [address] [place] [address] * CA-125 (11/20/2024 7:19 AM EDT) CA125 8 6 - 38 U/mL [facility] LIC# [id number] Comment: CA 125 REFERENCE RANGE: POSTMENOPAUSAL 6-32 U/mL PREMENOPAUSAL 6-46 U/mL Blood 11/20/2024 7:19 AM EDT 11/20/2024 7:21 AM EDT us Cindy Negrete MD LAB BLOOD ORDERABLES Final R esult Performing Organization Address [facility] Co de Phone Number [facility] LIC# [id number] [address] [place] [address] * Magnesium (11/20/2024 7:19 AM EDT) MAGNESIUM 1.7 1.7 - 2.6 mg/dL [facility] LIC# [id number] Blood 11/20/2024 7:19 AM EDT 11/20/2024 7:21 AM EDT us Violeta Iyer MD LAB BLOOD ORDERABLES Final Result Performing Organization Address [facility] de Phone Number [facility] LIC# [id number] [address] [place] [address] * MRI Breast Outside (No Interpretation) (05/14/2023 12:00 AM EST) Other Narrative ERIC_BWH - 11/01/2023 5:01 PM EDT This study is for PACS storage only and not for interpretation. us Cindy Negrete MD IMG OUTSIDE IMAGING W/OUT IN TERPRETATION Final Result Performing Organization Address [facility] de Phone Number PERCIPIO_BWH from Last 3 Months or Most Recently Relevant to Health Maintenance Insurance MEDICARE PART A & B [facility] MEDICARE SUPPLEMENT MEDICARE PART A & B [facility] MEDICARE SUPPLEMENT Member Subscriber Plan / Payer (Ef fective 2019-Present) Name:Gabi Brooks Member ID:[id number] Relation to Subscriber:Self Name:Gabi Brooks Subscriber ID:[id number] Payer ID:[id number] Group ID:Not on file Type:Medicare Address: [employer] [address] MEDICARE SUPPLEMENT MEDICARE PART A & B MEDICARE SUPPLEMENT MEDICARE PART A & B Member Subscriber Plan / Payer ( fective 2019-Present) Name:Gabi Brooks Member ID:[id number] Relation to Subscriber:Self Name:Gabi Brooks Subscriber ID:[id number] Payer ID:[id number] Group ID:Not on file Type:Medicare Address: [employer] [address] MEDICARE SUPPLEMENT MEDICARE PART A & B MEDICARE SUPPLEMENT [address] Advance Directives For more information, please contact: [phone] (9AM - 5PM Pam/[facility], Wednesday-Wednesday) Documents on File Type Date Recorded Patient Teletray Operator Expl anation Healthcare Proxy 01/06/2024 1:07 PM [...] Health Care Agent (Proxy form on file) [email or web address] Care Teams It Architecture Consultant Relationship Specialty Start Date End Date Maksim Sidhu MD [address] [place] [id number] PCP - General Internal Medicine 10/25/23 Addie Cao MD [facility] [address] [address] Referring Physician Gynecologic Oncology 10/25/23 Cordelia Hoyt RN [address] [place] [id number] [email or web address] Primary Infusion Nurse 01/11/24 Gris Fritz RN [address] [place] [id number] [email or web address] Associate Infusion Nurse 01/11/24 Cate Grady RN [address] [place] [id number] [email or web address] Associate Infusion Nurse 01/11/24 Additional Source Comments The information contained in this document represents components of the legal health record. It is not the complete legal health record.[facility]
== END 2025-01-25 09:54 | disposition home or self-care (01) ==
LOC: HO.HSM 09:29
PROVIDERS: PCP Internal Medicine; Visit Provider Psychiatry & Neurology Neurology
DX: G31.84 Mild cognitive impairment of uncertain or unknown etiology (principal)
CPT/HCPCS: 99214

== ENCOUNTER → 2025-01-25 09:29 | Outpatient (BNVA) | payer MEDICARE, OTHER, SELFPAY | PROVIDERS: PCP Internal Medicine; Visit Provider Psychiatry & Neurology Neurology | DX: G31.84 Mild cognitive impairment of uncertain or unknown etiology (principal) | CPT/HCPCS: 99212 ==